=== PATIENT | female | born 1935 | race Caucasian/White ===

== ENCOUNTER 2020-06-25 16:11 | Emergency (ER) | payer MEDICARE, OTHER ==
[~2020-06-25] VITALS: Ht 160 cm; Wt 102.7 kg
[~2020-06-25 16:11] MED LIST: ASCO1TAB13 PO; ATOR20TA PO; CALC600T15 PO; CELE-193 PO; CYAN100019 PO; DULO-31 PO; ERGO500014 PO; ESCI20TA PO; GLIM4TAB7 PO; HYDR-4353 PO; LEVO125T PO; LINA5TAB4 PO; MULT-1141 PO; PRED20TA PO; PREG300C PO; PREG50CA PO; RISE150T PO; ROPI2TAB4 PO; TRAZ-251 PO; UBID1CAP PO
[2020-06-25] MEDS ORDERED: morphine 4 MG/ML inj SYRINge IV PRN (17:05)
[2020-06-25] MEDS ORDERED: ondansetron/PF 4mg/2ml inj IV ONE (17:05)
[2020-06-25] MEDS ORDERED: normal saline 1000ML IV soln IVB ONE (17:05)
--- NOTE | 2020-06-25 17:13 | NUR ---
pt to CT, dressing to left upper chest is dry and intact, had pacemaker placed yesterday, pt said she had a problem with the meds given and was instructed "to drink alot of water and go to the restroom", has been compliant
--- NOTE | 2020-06-25 17:56 | NUR ---
pt up to bedside commode with min assist, urine sample sent to lab
[2020-06-25 18:08] LABS: BASOPHILS % (AUTO) 0.2 % (0-1); EOSINOPHILS % (AUTO) 0.2 % (0-6); HEMATOCRIT 47.6 % (35.0-45.0); HEMOGLOBIN 15.7 g/dl (12.0-16.0); LYMPHOCYTES # (AUTO) 1.9 X10'3 (1.1-4.8); LYMPHOCYTES % (AUTO) 19.2 % (21-51); MEAN CORPUSCULAR HEMOGLOBIN 29.7 PG (27.0-31.0); MEAN CORPUSCULAR VOLUME 89.9 FL (78-98); MEAN PLATELET VOLUME 9.6 FL (7.4-10.4); MONOCYTES # (AUTO) 0.7 X10'3 (0-0.9); MONOCYTES % (AUTO) 7.1 % (2-12); NEUTROPHILS # (AUTO) 7.4 X10'3 (1.8-7.7); NEUTROPHILS % (AUTO) 73.3 % (42-75); PLATELET COUNT 151 X10'3 (140-440); RED CELL DISTRIBUTION WIDTH 14.9 % (11.5-14.5); WHITE BLOOD COUNT 10.1 X10'3 (4.5-11.0)
[2020-06-25 18:09] LABS: CLARITY,URINE CLEAR (Clear); COLOR,URINE STRAW (Yellow); GLUCOSE, URINE NEGATIVE (Neg); KETONES,URINE NEGATIVE (Neg); LEUKOCYTE ESTERASE ,URINE TRACE (Neg); NITRITES, URINE NEGATIVE (Neg); OCCULT BLOOD,URINE TRACE-INTACT (Neg); PH,URINE 7.5 (4.8-8.0); PROTEIN,URINE NEGATIVE (Neg); UA COLLECTION TYPE CLN CATCH MIDSTREAM; UROBILINOGEN,URINE 0.2 E.U/dL (0.2-1.0)
[2020-06-25 18:21] LABS: ALANINE AMINOTRANSFERASE 33 U/L (12-78); ALBUMIN 3.9 G/DL (3.4-5.0); ALKALINE PHOSPHATASE 71 IU/L (46-116); ANION GAP 11 (8-16); ASPARTATE AMINO TRANSFERASE 27 U/L (10-37); BLOOD UREA NITROGEN 9 MG/DL (7-18); BUN/CREATININE RATIO 11.3 (6.6-38.0); CALCIUM 9.8 MG/DL (8.5-10.1); CHLORIDE 100 MMOL/L (99-107); GLUCOSE 148 MG/DL (70-104); LIPASE 112 U/L (73-393); POTASSIUM 3.4 MMOL/L (3.5-5.1); SODIUM 134 MMOL/L (135-145); TOTAL CARBON DIOXIDE 23.3 MMOL/L (24-32); eGFR 69 ML/MIN
[2020-06-25 18:41] LABS: BACTERIA,URINE NONE SEEN /HPF (Neg); RBC,URINE NONE SEEN /HPF (0-2); SQUAMOUS EPITHELIAL CELL,UR FEW /LPF (FEW); WBC,URINE NONE SEEN /HPF (0-4)
[2020-06-25 18:47] VITALS: BP 144/99
--- NOTE | 2020-06-25 18:55 | NUR ---
PT HAS RIDE HOME WITH DAUGHTER, SHE WILL BE HERE IN 15-20 MINUTES
[2020-06-25] MEDS ORDERED: ONDA4TAB6 PO (19:16)
== END 2020-06-25 19:34 | disposition home or self-care (01) ==
LOC: ER 16:12
DX: R10.819 Abdominal tenderness, unspecified site (principal); R11.10 Vomiting, unspecified; Z95.0 Presence of cardiac pacemaker; Z90.49 Acquired absence of other specified parts of digestive tract; Z90.710 Acquired absence of both cervix and uterus; Z79.899 Other long term (current) drug therapy
CPT/HCPCS: 36415; 74176; 80053; 81001; 83690; 85025; 87088; 96361; 96374; 99284; J2405; J7030

== ENCOUNTER 2025-06-17 12:23 | Inpatient (IN) | payer MEDICARE, OTHER ==
[~2025-06-17] VITALS: Ht 157.5 cm; Wt 87.8 kg
[~2025-06-17 12:23] MED LIST changes: -CALC600T15 PO; +CALC600T35 PO; +ONDA4TAB6 PO
--- NOTE | 2025-06-17 12:47 | ELECTROCARDIOGRAPH REPORT ---
[facility] Test Date: 2025-06-17 Test Time: 12:44:10 Pat Name: HA MONROY Department: EMERGENCY ROOM [id number] Room: ED 10 Gender: F Patient Access Representative: : 1935 Requested By: KAVYA PACHECO Order Number: [id number] Reading MD: Dr. Mick Christina Measurements Intervals [place] Rate: 79 P: 12 IA: 170 QRS: 101 QRSD: 104 T: -31 QT: 357 QTc: 410 Interpretive Statements Sinus rhythm Probable RVH w/ secondary repol abnormality Baseline wander in lead(s) V1 Electronically Signed On 06-17-2025 18:20:[address] Mick Christina Please click the below link to view image of tracing.
[2025-06-17 12:49] LABS: MEAN PLATELET VOLUME 9.0 FL (7.4-10.4); RED CELL DISTRIBUTION WIDTH 13.8 % (11.5-14.5)
--- NOTE | 2025-06-17 13:03 | RADIOLOGY REPORT ---
CHEST RADIOGRAPH Indication: CP Technique: Single frontal view of the chest was obtained COMPARISON: None FINDINGS: Lines and Tubes: Left chest wall pacemaker Lungs: Multifocal airspace disease Pleura: No effusion. No pneumothorax. Cardiomediastinal contours: Unremarkable Bones: Unremarkable IMPRESSION: Multifocal airspace disease
[2025-06-17 13:05] LABS: CREATININE 1.16 MG/DL (0.40-0.90); PRO BRAIN NATRIURETIC PEPTIDE 2668 PG/ML (0-450); TOTAL CARBON DIOXIDE 29.4 MMOL/L (24-32); eCRCL 27 ML/MIN; eGFR 44 ML/MIN
[2025-06-17] MEDS: ondansetron/PF 4mg/2ml inj IV ONE (13:10)
[2025-06-17] MEDS: morphine 4 MG/ML inj SYRINge IV ONE (13:10)
--- NOTE | 2025-06-17 13:16 | Physician Documentation ---
History of Present Illness ~ Chief Complaint: Chest Pain Stated Complaint: CHEST WALL PAIN Time Seen by MD: 12:55 Primary Medical Doctor: Trey OLIVER Mode of Arrival: EMS HPI 89-year-old female presents to the ED with a complaint of intermittent very sharp left-sided chest pain.. Patient had a pacemaker placed proximally 3-4 years ago she was seen at [facility] two days ago for this chest pain and that has established via CT ANGIO that the implanted cardiac pacer in the left chest wall, O2 evidence of a right atrial lead that does not follow up with the expected J shaped course and most likely likely dislodged. Patient is a Dr. Vicky Glass patient and has a history of CHF Day of Onset: Jun 17, 2025 Medication Reconciliation Allergies: Coded Allergies: No Known Allergies (Unverified , 06/17/25) Scheduled Ascorbate Calcium/Bioflav (Korin-C 500 Mg Tablet), 1 TAB PO DAILY, (Reported) Atorvastatin Calcium* (Lipitor*), 1 TABLET PO HS, (Reported) Calcium Carbonate (Calcium), 4 TAB PO DAILY, (Reported) Celecoxib* (Celebrex*), 100 MG PO DAILY, (Reported) Cyanocobalamin (Vitamin B-12) (Vitamin B-12), 1 TABLET PO DAILY, (Reported) Duloxetine Hcl* (Cymbalta*), 60 MG PO BID, (Reported) Ergocalciferol* (Vitamin D*), 1 CAP PO Q7D, (Reported) Escitalopram Oxalate (Lexapro), 1 TABLET PO DAILY, (Reported) Glimepiride* (Amaryl*), 8 MG PO DAILY, (Reported) Levothyroxine Sodium (Synthroid), 1 TABLET PO QAM, (Reported) Linagliptin (Tradjenta), 1 TABLET PO DAILY, (Reported) Mu-Vits-Min Th/Lycopene/Lutein (Centrum Silver Tablet), 1 EACH PO DAILY, (Reported) Ondansetron Hcl (Zofran), 1 TAB PO Q6H Prednisone* (Prednisone*), 1 TABLET PO DAILY, (Reported) Pregabalin (Lyrica), 1 CAP PO HS, (Reported) Pregabalin (Lyrica), 1 CAP PO QAM, (Reported) Risedronate Sodium* (Actonel*), 1 TABLET PO Q30D, (Reported) Ropinirole Hcl (Requip), 2 MG PO DAILY, (Reported) Trazodone HCl (Trazodone HCl), 1 TABLET PO HS, (Reported) Ubidecarenone/[place]-3/Vit E (Co Q-10-Vit E-Fish Oil Sfgl), 1 TAB PO DAILY, (Reported) Scheduled PRN Hydrocodone Bit/Acetaminophen ([place] 10-325 Tablet), 1 TAB PO Q6H PRN for pain, (Reported) Past Medical History Past Medical History: No Pertinent History Past Surgical History: appendectomy, hysterectomy Patient History: (COPD) Chronic obstructive lung disease FATHER, , Age: 79, Cause: CHF exacerbation FH: HTN (hypertension) MOTHER, , Age: 92, Cause: Ovarian cancer Lives In: Home Review of Systems All Other Systems at this time: Reviewed and Negative ROS As stated above in the HPI, otherwise all systems are reviewed and negative. Physical Exam Vital Signs: Temperature: 99.4, Source: Oral, Heart Rate: 79, Respiratory Rate: 16, BP: 153/76, Pulse Oximetry: 95, Weight: 77.730 Oxygen Flow Rate: 3.0 Physical Exam General: Alert, no apparent distress. Respiratory: Lungs clear, no respiratory distress. Chest: No accessory muscle use. Cardiovascular: Regular rate and rhythm, no murmurs. Psychiatric: Normal mood and affect. Skin: Normal color, warm and dry. No edema, no ecchymosis. Progress Results/Orders Results/Orders Orders - HUI MICHAUD INSPECTOR QUALITY ASSURANCE * Call To Have Pacer Interroga (06/17/25 13:34) Er Interrogation Device Eval S (06/17/25 ) Page Hospitalist (06/17/25 ) Page Hospitalist (06/17/25 ) Completed Orders - HUI MICHAUD INSPECTOR QUALITY ASSURANCE Morphine 4mg/Ml Inj. (Morphine Inj.) (06/17/25 13:10) Ondansetron Inj. (Zofran 4mg/2ml Vial) (06/17/25 13:10) Morphine 4mg/Ml Inj. (Morphine Inj.) (06/17/25 13:55) Ondansetron Inj. (Zofran 4mg/2ml Vial) (06/17/25 13:55) Medications Received in ER Medications (Trade) Dose Ordered Sig/Maryam Route PRN Reason Start Time Stop Time Status Last Admin Dose Admin (morphine inj.) 4 mg ONCE ONCE IM 06/17/25 13:55 06/17/25 13:56 DC 06/17/25 13:59 4 MG (Zofran 4mg/2ml vial) 4 mg ONCE ONCE IM 06/17/25 13:55 06/17/25 14:00 DC 06/17/25 13:59 4 MG Vital Signs 06/17/25 06/17/25 06/17/25 06/17/25 12:27 12:59 13:59 14:45 Temp 99.4 99.4 Pulse 79 86 Resp 18 16 16 13 B/P (MAP) 153/76 161/82 (108) Pulse Ox 95 95 O2 Flow Rate 3.0 3.0 06/17/25 15:39 Resp 16 Laboratory Tests Test 06/17/25 12:34 06/17/25 14:29 White Blood Count 6.7 Red Blood Count 4.53 Hemoglobin 14.0 Hematocrit 42.5 Mean Corpuscular Volume 93.9 Mean Corpuscular Hemoglobin 30.8 Mean Corpuscular Hemoglobin Concent 32.8 L Red Cell Distribution Width 13.8 Platelet Count 180 Mean Platelet Volume 9.0 Neutrophils (%) (Auto) 68.9 Lymphocytes (%) (Auto) 22.4 Monocytes (%) (Auto) 6.1 Eosinophils (%) (Auto) 1.9 Basophils (%) (Auto) 0.7 Neutrophils # (Auto) 4.6 Lymphocytes # (Auto) 1.5 Monocytes # (Auto) 0.4 Eosinophils # (Auto) 0.1 Basophils # (Auto) 0.0 CBC Comment Sodium Level 138 Potassium Level 4.2 Chloride Level 100 Carbon Dioxide Level 29.4 Anion Gap 9 Blood Urea Nitrogen 14 Creatinine 1.16 H Estimated GFR/1.73 m2 44 BUN/Creatinine Ratio 12.1 Glucose Level 117 H Calcium Level 9.7 Troponin I High Sensitivity 13 12 Pro-B-Type Natriuretic Peptide 2668 H Albumin 3.5 Thyroid Stimulating Hormone (TSH) 3.14 Chemistry Comments Troponin I High Sens Percent Delta 7 Troponin I Hi Sens Absolute Change -1 Medical Decision Making Findings Dr. Vicky Glass was notified of the patient's arrival. At this time, we are going to interrogate the pacemaker this patient to confirm dislodged a lead. VTE angiogram that was performed two days ago at [facility] did not report any findings that would be causative of the current patient complaint which is intermittent sharp left-sided chest pain. This point I am obligated to offer hospital admission for intractable pain Cardiology will eval in the outpatient setting, I discussed this with the family reassuring them Patient is hemodynamically stable laboratory values do not indicate any signs infarct or any other cardiac events does have a positive proBNP which is expected. EKG is reassuring at normal sinus rhythm Pacemaker interrogated. The [employer] pacemaker Tech indicated there were no signs of malfunction in the pacemaker. Differential Dx:Considerations: Include: angina, aortic dissection, chest wall pain, cholelithiasis, CHF, costochondritis, esophageal reflux/spasm, gastritis, herpes zoster, myocardial infarction, pericarditis, pleuritis, pancreatitis, pneumonia, pneumothorax, pulmonary embolus, other Departure Disposition: 01 HOME / SELF CARE / HOMELESS Impression: Primary Impression: Chest pain Condition: Fair Referrals: NO PRIMARY CARE PROVIDER (PCP) Signature Scribe Signature: h Attestation: Scribed for Hui Michaud Vacuum Metalizing Supervisor by Hui Palacio NP . 06/17/25 13:38 HUI MICHAUD NP Jun 17, 2025 13:16
[2025-06-17] MEDS: morphine 4 MG/ML inj SYRINge IM ONE (13:59)
[2025-06-17] MEDS: ondansetron/PF 4mg/2ml inj IM ONE (13:59)
[2025-06-17] MEDS ORDERED: mag hydrox/Alum hydrox/simeth 30ml oral suspension PO PRN (16:45)
[2025-06-17] MEDS ORDERED: HYDROcodone/acetaminophen 5mg/325mg tablet PO PRN (16:45)
[2025-06-17] MEDS ORDERED: potassium Cl 20 mEq SR tablet PO PRN ×2 (16:45)
[2025-06-17] MEDS: PERFLUTREN PROTEIN-A MICROSPHR (Optison) 0.22 MG/ML 3ML VIAL IV ONE (16:45)
[2025-06-17] MEDS ORDERED: potassium Cl 40MEQ/1/2NS 520ml 520 ML IV PRN (16:45)
[2025-06-17] MEDS ORDERED: glucagon, human recombinant 1mg kit SUBCUT PRN (16:45)
[2025-06-17] MEDS ORDERED: HYDROcodone/acetaminophen 10/325mg tab PO PRN (16:45)
[2025-06-17] MEDS ORDERED: magnesium hydroxide 30ml (MOM) UD suspension PO PRN (16:45)
[2025-06-17] MEDS ORDERED: magnesium sulf-water 4G/100mL 100 ML IV PRN (16:45)
[2025-06-17] MEDS ORDERED: guaiFENesin 200 MG/10 ML oral syrup UD cup PO PRN (16:45)
[2025-06-17] MEDS ORDERED: DEXTROSE 15 GM of carb/4 tabs (each vial/BOTTLE has 4 tablets) PO PRN ×2 (16:45)
[2025-06-17] MEDS ORDERED: magnesium Cl slow-release 64mg tablet PO PRN (16:45)
[2025-06-17] MEDS ORDERED: magnesium sulf-water 2g/50mL 50 ML IV PRN (16:45)
[2025-06-17] MEDS ORDERED: dextrose 50%-water 50ml dispensing syringe IV PRN ×2 (16:45)
[2025-06-17] MEDS: INSULIN LISPRO 100 UNIT/ML INSULN.PEN MULTI-DOSE SQ SCH (17:00)
[2025-06-17] MEDS: CefTRIAXone/D5W-Rocephin 1gm 50 ML IV ONE (17:30)
[2025-06-17] MEDS: furosemide 10 MG/1 ML 10ml inj IV ONE (17:31)
--- NOTE | 2025-06-17 17:57 | HISTORY AND PHYSICAL-Residence ---
History & Physical Providers to CC Resident Creating Document: MICHELLE WILBURN, RES CC: SUSSY PANIAGUA MD ~ History of Present Illness Primary Medical Doctor: Trey OLIVER Reason for Admit\Complaint: Intractable neuropathic pain History of Present Illness A 89-year-old female patient with past history of hypothyroidism, diabetes mellitus, congestive heart failure, pacemaker in place presented to the ED with symptoms of severe pain since the last five [id number] chest pain, rated the pain 8/10 radiating to her back, constantly present -no aggravating or relieving factors. Patient denies any associated palpitations, fever, orthopnea or PND. Patient has cough associated with whitish sputum, no hemoptysis. Patient had a pacemaker placed in 2019. She was seen at [facility] two days ago for this chest pain, CT angio done at [facility] showed the implanted cardiac pacer in the left chest wall, evidence of a right atrial lead that does not follow up with the expected J shaped course and most likely dislodged. Patient has history of chronic neuropathic pain for the last few years. Patient lives with her family in her house and ambulates with a walker. Patient's primary care doctor is [facility] Patient's emulsion coater is Dr. Glass Patient's religious educator is Eve alvarez. ED course: Patient heart rate 79 beats/min, blood pressure 153/76mmhg, respiratory rate 18 breaths/minute Patient was given two dose of morphine 4 mg IV Allergies: Coded Allergies: No Known Allergies (Unverified , 06/17/25) Home Medications Home Medications Active Zofran (Ondansetron Hcl) 4 Mg Tablet 1 Tab PO Q6H Reported Prednisone* (Prednisone) 20 Mg Tablet 1 Tablet PO DAILY [place] 10-325 Tablet (Acetaminophen/Hydrocodone Bitart) 1 Each Tablet 1 Tab PO Q6H PRN Lexapro (Escitalopram Oxalate) 20 Mg Tablet 1 Tablet PO DAILY Celebrex* (Celecoxib) 100 Mg Capsule 100 Mg PO DAILY Actonel* (Risedronate) 150 Mg Tablet 1 Tablet PO Q30D Amaryl* (Glimepiride) 4 Mg Tablet 8 Mg PO DAILY Calcium (Calcium Carbonate) 600 Mg Tablet 4 Tab PO DAILY Tradjenta (Linagliptin) 5 Mg Tablet 1 Tablet PO DAILY Trazodone HCl 50 Mg Tablet 1 Tablet PO HS Synthroid (Levothyroxine Sodium) 125 Mcg Tablet 1 Tablet PO QAM Requip (Ropinirole Hcl) 2 Mg Tablet 2 Mg PO DAILY Lipitor* (Atorvastatin Calcium) 20 Mg Tablet 1 Tablet PO HS Korin-C 500 Mg Tablet (Ascorbate Calcium/Bioflav) 1 Each Tablet 1 Tab PO DAILY Centrum Silver Tablet (Mu-Vits-Min Th/Lycopene/Lutein) 1 Each Tablet 1 Each PO DAILY Vitamin D* (Ergocalciferol) 50,000 Unit Capsule 1 Cap PO Q7D Vitamin B-12 (Cyanocobalamin (Vitamin B-12)) 1,000 Mcg Tablet 1 Tablet PO DAILY Co Q-10-Vit E-Fish Oil Sfgl (Ubidecarenone/[place]-3/Vit E) 1 Each Capsule 1 Tab PO DAILY Lyrica (Pregabalin) 50 Mg Capsule 1 Cap PO QAM Lyrica (Pregabalin) 300 Mg Capsule 1 Cap PO HS Cymbalta* (Duloxetine HCl) 30 Mg Capsule.dr 60 Mg PO BID Past Medical History Past Medical History Diabetes mellitus Hypothyroidism Congestive heart failure Chronic neuropathic pain Past Surgical History Surgical History Comment Bilateral knee replacements in 2017 and 2019 Left hip replacement Thumb toe surgery Family History Family History: (COPD) Chronic obstructive lung disease FATHER, , Age: 79, Cause: CHF exacerbation FH: HTN (hypertension) MOTHER, , Age: 92, Cause: Ovarian cancer Past Social History Social History Comment Patient used to smoke one pack of cigarettes/2weeks- 50 years back Patient denies any alcohol or drug use Lives In: Home ROS All Other Systems: Reviewed and Negative ROS Constitutional: No fever, dizziness, weakness, HEENT: Blurry vision. No sore throat, epistaxis, tinnitus Cardiovascular: No chest pain/discomfort,no palpitations, no syncope, 2+ pitting pedal edema Respiratory: No cough,hemoptysis, severe shortness for breath present, increased work of breathing Gastrointestinal: No abdominal pain, nausea, vomiting. No diarrhea, melena. Genitourinary: No frquency, urgency, incontinence, nocturia. No dysuria, hematuria Musculoskeletal: Excruciating pain especially the left sided chest, left back ,left leg Endocrine: No fatigue, polydipsia, polyuria. No heat or cold intolerance Neurologic: No headache, vertigo. No weakness, numbness or tingling of extremities,pins and needles sensation + Psychiatric: No hallucinations/delusions, no anhedonia, no suicidal ideation Hematologic: Bruises present, chronic venous stasis noted bilaterally Exam Vitals: Vital Signs Date Time Temp Pulse Resp B/P (MAP) Pulse Ox O2 Delivery O2 Flow Rate FiO2 06/17/25 15:55 99.4 84 25 157/78 (104) 97 3.0 General: General: Elderly female, AAO x4, Head: Normocephalic with an atraumatic Eyes: Pupils- 3mm, reacting to light, conjunctiva- anicteric, normal vision left eye, blurred vision Nose and throat: No polyps, septum- normal, no mucosal ulcers, Neck: Supple, no lymphadenopathy, no carotid bruit, JVP noted Respiratory: decreased breath sounds heard bilateral, no wheezing heard, increased work of breathing Cardiac: S1-S2 heard, regular rhythm Abdomen: no tenderness, no organomegaly, bowel sounds-appreciable Extremities: no clubbing,2+ pedal edema, peripheral pulses- 2+, Skin: warm and dry, bilateral lower extremity chronic venous stasis Neuro: Gross cranial nerve exam- normal, patient complains of pins and needles sensation Diagnostic Data Last Recorded Lab Results: 06/17/25 1234 06/17/25 1234 Advance Care Planning Advanced Care plannin - 30 Minutes (Discussed advanced care planning with patient her daughter was present as well, patient has a DNR form, but she wants it to be changed to full code. I explained to the patient and her daughter extensively about the code status with respect to her age, patient is clear she wants to be full code.) Additional Plan Assessment:A 89-year-old female patient with past history of hypothyroidism, diabetes mellitus, congestive heart failure, pacemaker in place presented to the ED with symptoms of severe pain since the last five [id number]-ssrgu chest pain. Pneumonia(community-acquired pneumonia) Acute hypoxemic respiratory failure CURB-65: 1 points 2.7% 30-day mortality Procal <0.05, WBC 6.7 Patient's chest x-ray: Bilateral infiltrates Patient has symptoms of cough with sputum, patient is on 2 L oxygen saturating at 94% Plan: Ordered COVID test Initiated IV Rocephin and azithromycin Initiated guanfenine syrup and albuterol neb prn Acute on chronic heart failure with unknown ejection fraction h/o congestive heart failure, Pacemaker in place(2019) B/l pedal edema present, ProBNP: 2668 Plan: -Ordered echo -initiated furosemide 40 mg IV once, 20 mg b.i.d. from tomorrow We will continue patient's home meds, once med rec is done Left-sided chest pain, ECG-sinus rhythm,heart rate of 70beats/min, no ST segment elevations or depressions, no T-wave inversion Patient complained of chest pain radiating to her back, serial troponins were negative-ruled out IA Patient's CT at [facility] showed possible dislodgement of a guidewire of a pacemaker, Dr. Glass was informed and will evaluate. Chronic intractable neuropathic pain, Patient has had chronic neuropathic pain,possibly due to uncontrolled diabetes Patient's HbA1c is 8.1, Started the patient on moderate hyperglycemia hypoglycemic protocol Ordered morphine 1 mg q.4h PRN, 2mg q.4h., [place] p.r.n. We will initiate patient's pain meds once med rec is done Hypothyroidism Patient's TSH is 3.14, We will initiate her home levothyroxine dosage once med rec is done Diabetes mellitus type 2 His A1c is 8.1, Plan: Initiated hyperglycemia-hypoglycemia medium dose protocol Code Status: Full code DVT Prophylaxis: Heparin Lines/Tubes: PIV Nutrition: Heart healthy diet once speech therapy clears PT:yes Prognosis: Guarded Disposition: Continue to monitor the patient in ortho with telemetry Michelle Wilburn MD Internal medicine resident,PGY-1 Date of Service: Jun 17, 2025 Billing Provider: SUSSY PANIAGUA MD, JAHNAVI, RES Jun 17, 2025 17:57
[2025-06-17 18:00] VITALS: PULSE 85; RESP 16; O2SAT 95
[2025-06-17] MEDS ORDERED: HYDR-3964 PO (18:17)
[2025-06-17] MEDS ORDERED: LEVO137T2 PO (18:17)
[2025-06-17] MEDS ORDERED: MAGNESIUM PO (18:17)
[2025-06-17] MEDS ORDERED: LANTUS SUBCUT (18:17)
[2025-06-17] MEDS ORDERED: POTASSIUM PO (18:17)
[2025-06-17] MEDS ORDERED: AREDS2 PO (18:17)
[2025-06-17] MEDS ORDERED: EMPA10TA PO (18:17)
[2025-06-17] MEDS ORDERED: FURO-150 PO ×2 (18:17)
[2025-06-17] MEDS ORDERED: REQUIP PO (18:17)
[2025-06-17] MEDS: azithromycin/NS 500mg/250ml 250 ML IV SCH (18:37)
--- NOTE | 2025-06-17 19:15 | CARDIOLOGY REPORT ---
APPROVED REPORT EXAM: Limited 2D, Doppler, and color-flow Echocardiogram. Patient Location: ED 10 Heart Rate: 80's bpm Rhythm: PACED Indications CONGESTIVE HEART FAILURE CHEST PAIN PACEMAKER AROUND 2020 PER PATIENT Money Manager: Danny Glass MD Previous echo: NONE AVAILABLE (AFTER HOURS) 2D Dimensions LVDd 3.2 cm IVC 21.06 mm M-Mode Dimensions Aortic Root 2.76 (2.2-3.7cm) Aortic Valve AoV Peak Nitin. 152.5 cm/s AoV VTI 27.5 cm AO Peak GR. 9.3 mmHg AO Mean GR. 5 mmHg LVOT VTI 23.49 cm LVOT Peak Nitin. 112.8 cm/s Tricuspid Valve TR P. Velocity 442 cm/s RAP ESTIMATE 10 mmHg TR Peak Gr. 78 mmHg RVSP 88 mmHg LEFT VENTRICLE Grossly normal LV size and wall thickness. Overall systolic function is normal. TDS LVEF is 60-65%. RIGHT VENTRICLE RV appears at least moderately dilated with normal function. Elevated right heart pressures with and RVSP of 88 mmHg. Pacemaker wire in right heart.TDS ATRIA The left atrium size appears normal. TDS AORTIC VALVE Probable trileaflet AV appears mildly sclerotic without stenosis. No insufficiency. TDS MITRAL VALVE Mild MV annular calcification without stenosis. Trace regurgitation. TDS TRICUSPID VALVE TV appears structurally normal with moderate regurgitation. TDS PULMONIC VALVE Pulmonic valve is not well visualized. TDS GREAT VESSELS The aortic root is normal in size. IVC is dilated and collapses greater than 50% with inspiration. PERICARDIUM Normal pericardium. No effusion. Other Information Study Quality: Technically Difficult due to poor imaging windows and pt uncooperative Conclusion Technically diffisult study. Grossly normal LV size and wall thickness. Overall systolic function is normal. LVEF is 60-65%. RV appears at least moderately dilated with normal function. Elevated right heart pressures with and RVSP of 88 mmHg. Pacemaker wire in right heart. The left atrium size appears normal. Probable trileaflet AV appears mildly sclerotic without stenosis. No insufficiency. Mild MV annular calcification without stenosis. Trace regurgitation. TV appears structurally normal with moderate regurgitation. Normal pericardium. No effusion.
[2025-06-17] MEDS: K and/or MAG REPLACEMENT MC SCH (20:00)
[2025-06-17] MEDS: docusate sod 100mg capsule PO SCH (20:00)
[2025-06-17] MEDS: heparin, porcine 5000 units/ml vial SQ SCH (20:49)
[2025-06-17 21:50] VITALS: BP 125/67; PULSE 84; RESP 18; TEMP 99.8; O2SAT 93
[2025-06-17 21:53] LABS: UA COLLECTION TYPE URINAL
[2025-06-17 21:54] LABS: LEUKOCYTE ESTERASE ,URINE SMALL (Neg); NITRITES, URINE NEGATIVE (Neg); OCCULT BLOOD,URINE TRACE-INTACT (Neg)
[2025-06-17 22:00] VITALS: RESP 18; O2SAT 95
[2025-06-17 22:00] LABS: SQUAMOUS EPITHELIAL CELL,UR FEW /LPF (FEW)
[2025-06-17 22:01] LABS: MUCUS STRANDS FEW /LPF (Neg)
[2025-06-17 22:46] VITALS: PULSE 89; RESP 20; O2SAT 94
[2025-06-17 22:55] VITALS: PULSE 89; RESP 18
[2025-06-18] VITALS (9 sets, daily range): BP systolic 96–122; BP diastolic 40–65; PULSE 75–84; RESP 16–24; TEMP 97.2–98.7; O2SAT 92–98
[2025-06-18] MEDS: albuterol 2.5 MG/3 ML nebule NEB PRN (01:22)
[2025-06-18 05:00] LABS: MEAN PLATELET VOLUME 9.0 FL (7.4-10.4); RED CELL DISTRIBUTION WIDTH 13.7 % (11.5-14.5)
[2025-06-18 05:30] LABS: CREATININE 1.07 MG/DL (0.40-0.90); TOTAL CARBON DIOXIDE 28.6 MMOL/L (24-32); eCRCL 29 ML/MIN; eGFR 48 ML/MIN
[2025-06-18] MEDS: EMPAGLIFLOZIN 10 MG TABLET PO SCH (09:16)
[2025-06-18] MEDS: levoTHYROXINE 25mcg tablet PO SCH (09:16)
[2025-06-18] MEDS: levoTHYROXINE 112mcg tablet PO SCH (09:16)
[2025-06-18] MEDS: CefTRIAXone/D5W-Rocephin 1gm 50 ML IV SCH (09:17)
[2025-06-18] MEDS: furosemide 10 MG/1 ML 10ml inj IV SCH (09:31)
--- NOTE | 2025-06-18 13:02 | RADIOLOGY REPORT ---
CTA Chest with intravenous contrast INDICATION: pleuritic pain COMPARISON: None TECHNIQUE: Multidetector spiral CTA of the chest was performed of the chest with intravenous contrast . PULMONARY ANGIOGRAPHY PROTOCOL was utilized using a bolus-tracking technique centered on the main p ulmonary artery. Axial, coronal and sagittal multiplanar and MIP reformats were performed. CONTRAST: Type of contrast: Omni 350 Contrast injected: 100 ml Radiation dose : Chest: CTDI volume is 19 mGy. Dose-length product is 737 mGy*cm The dose indicators for CT are the volume computed Tomography (CT) dose Index (CTDIvol) and the dose Length product (DLP), and are measured in units of mGy and mGy-cm, respectively. These indicators are not patient dose, but values generated from the CT scanner acquisition factors. The report includes radiation exposure data for exposures received during this examination. Findings: Pulmonary artery: No pulmonary embolism. Main pulmonary artery is dilated suggesting pulmonary arterial hypertension. Lower neck: Normal thyroid. Lungs: Mild atelectasis and consolidation in the lung bases. Heart/Vascular Structures: Normal heart size. No pericardial effusion. Lymph Nodes: Subcentimeter mediastinal lymph nodes. Pleura: No pleural effusion or significant pneumothorax. Musculoskeletal: Old treated compression fractures T12 and L2. Multilevel degenerative disease. Ost eopenia. Soft tissues: Normal. Upper abdomen: Limited portions of the upper abdomen are unremarkable. IMPRESSION: 1. No pulmonary embolism. 2. Mild atelectasis and consolidation in the lung bases. Subcentimeter mediastinal lymph nodes are n onspecific. Clinical correlation and continued follow-up is recommended. HS:Y
[2025-06-18] MEDS: duloxetine 20mg capsule.DR PO SCH (13:13)
--- NOTE | 2025-06-18 13:33 | RADIOLOGY REPORT ---
HOSPITAL INDICATION: Chronic pain COMPARISON: None TECHNIQUE:3 views of the thoracic spine were obtained. FINDINGS: The thoracic vertebral alignment is normal. Kyphoplasty T11 vertebral bodies No acute fracture, vertebral compression deformity or aggressive osseous lesions. The imaged thorax and abdomen are grossly unremarkable. IMPRESSION: No acute fracture.
--- NOTE | 2025-06-18 13:35 | RADIOLOGY REPORT ---
INDICATION: Chronic pain COMPARISON: None TECHNIQUE: 3 views of the lumbar spine were obtained. FINDINGS: The lumbar vertebral alignment is normal. Multilevel degenerative changes most severe L4-L5 through L5-S1 causing moderate to severe neural for aminal and spinal canal stenosis. No acute fracture, vertebral compression deformity or aggressive osseous lesions. The paravertebral soft tissues are grossly unremarkable. IMPRESSION: No acute fracture or subluxation.
[2025-06-18] MEDS: lactose-reduced food (Ensure Enlive) - 237ml bottle PO SCH (18:00)
--- NOTE | 2025-06-18 18:37 | PROGRESS NOTE- Residence ---
Progress Note - Resident Providers to CC Resident Creating Document: JASIEL WILBURN RES CC: SUSSY PANIAGUA MD ~ Antibiotic Timeout Antibiotic Ordered?: Yes Subjective Patient was seen and examined at her bedside, patient appears uncomfortable, grunting in pain due to her chronic neuropathic pain. Objective Vital Signs Date Time Temp Pulse Resp B/P (MAP) Pulse Ox O2 Delivery O2 Flow Rate FiO2 06/18/25 18:00 97.2 80 22 122/65 (84) 93 Nasal Cannula 4.0 06/18/25 08:51 32 General: Elderly female, AAO x4, in distress Head: Normocephalic with an atraumatic Neck: Supple, no lymphadenopathy, no carotid bruit, JVP noted Respiratory: decreased breath sounds heard bilateral, no wheezing heard, increased work of breathing Cardiac: S1-S2 heard, regular rhythm Abdomen: no tenderness, no organomegaly, bowel sounds-appreciable Extremities: no clubbing,1+ pedal edema, peripheral pulses- 2+, Skin: warm and dry, bilateral lower extremity chronic venous stasis Neuro: Gross cranial nerve exam- normal, patient complains of pins and needles sensation Result Diagram: 06/18/2544106/18/25441 Plan Plan Additional Plan Assessment:A 89-year-old female patient with past history of hypothyroidism, diabetes mellitus, congestive heart failure, pacemaker in place presented to the ED with symptoms of severe pain since the last five lbhd-frqm-kufhl chest pain. Pneumonia(community-acquired pneumonia)-gram positive pneumonia Acute hypoxemic respiratory failure CURB-65: 1 points 2.7% 30-day mortality Procal <0.05, WBC 8 Patient's chest x-ray: Bilateral infiltrates Patient has symptoms of cough with sputum, patient is on 3-4 L oxygen saturating at 94% COVID test negative CTA chest: Mild atelectasis and consolidation in the lung bases. Plan -Continue IV Rocephin and azithromycin -Continue guanfenine syrup and albuterol neb prn Acute on chronic heart failure with preserved ejection fraction h/o congestive heart failure, Pacemaker in place(2019) B/l pedal edema present, ProBNP: 2668 Echo showed.Grossly normal LV size and wall thickness. Overall systolic function is normal. LVEF is 60-65%. RV appears at least moderately dilated with normal function. Elevated right heart pressures with and RVSP of 88 mmHg. Pacemaker wire in right heart. Plan: -continue furosemide 20 mg b.i.d. -continue empagliflozin 10mg Left-sided chest pain,ACS ruled out ECG-sinus rhythm,heart rate of 70beats/min, no ST segment elevations or depressions, no T-wave inversion Patient complained of chest pain radiating to her back, serial troponins were negative-ruled out [place] Patient's CT at [facility] showed possible dislodgement of a guidewire of a pacemaker, Dr. Glass was informed and will evaluate. Plan:Cardiology was consulted, they reviewed the patient, did not feel the need of any intervention right now and recommended outpatient follow Chronic intractable neuropathic pain, Patient has had chronic neuropathic pain,possibly due to uncontrolled diabetes,HbA1c 8.1 Lumbar spine [id number]-klq-[id number] no acute fractures,Multilevel degenerative changes most severe L4-L5 through L5-S1 causing moderate to severe neural foraminal and spinal canal stenosis., Thoracic spine x-ray showed no acute fracture,Kyphoplasty of T11 vertebral bodies Plan: -Initiated duloxetine 30 mg once a day -Continue 1 mg q.4h PRN, 2mg q.4h., [place] p.r.n. -will benefit from outpatient follow-up with neurosurgery Hypothyroidism Patient's TSH is 3.14, Continue levothyroxine 75 mcg Diabetes mellitus type 2 His A1c is 8.1, -continue hyperglycemia-hypoglycemia medium dose protocol Code Status: Full code DVT Prophylaxis: Heparin Lines/Tubes: PIV Nutrition: Heart healthy diet PT:yes Prognosis: Guarded Disposition: Continue to monitor the patient in ortho with telemetry Jasiel Wilburn MD Internal medicine resident,PGY-1 Date of Service: Jun 18, 2025 Billing Provider: SUSSY PANIAGUA MD, JAHNAVI, RES Jun 18, 2025 18:36 CHAN HIGGINS, RES Jun 19, 2025 07:58
[2025-06-19] VITALS (13 sets, daily range): BP systolic 101–127; BP diastolic 43–69; PULSE 55–80; RESP 15–18; TEMP 97.4–98.4; O2SAT 91–100
[2025-06-19 05:31] LABS: MEAN PLATELET VOLUME 8.7 FL (7.4-10.4); RED CELL DISTRIBUTION WIDTH 13.9 % (11.5-14.5)
[2025-06-19 05:52] LABS: CREATININE 0.93 MG/DL (0.40-0.90); TOTAL CARBON DIOXIDE 34.2 MMOL/L (24-32); eCRCL 33 ML/MIN; eGFR 57 ML/MIN
[2025-06-19] MEDS: ondansetron/PF 4mg/2ml inj IV PRN (08:48)
[2025-06-19] MEDS ORDERED: CARV3.12 PO (13:42)
[2025-06-19] MEDS ORDERED: LOSA-415 PO (13:42)
[2025-06-19] MEDS ORDERED: SENN-398 PO (13:42)
--- NOTE | 2025-06-19 15:42 | PROGRESS NOTE- Residence ---
Progress Note - Resident Providers to CC Resident Creating Document: CHAN HIGGINS RES CC: SUSSY PANIAGUA MD ~ Central Line/PICC still needed: N\A Antibiotic Timeout Antibiotic Ordered?: Yes Subjective Patient is seen this morning at the bedside. Beating appears better than yesterday. She is still complaining of pain over her back and had tried lidocaine patches in the past which helped her with the pain. Discussed regarding the code status with the patient and patient said she had signed the DNR before but she wants me to discuss again with her daughter regarding the code status. I tried reaching the daughter but call was not answered- Tash mcdaniels- [phone] Objective Vital Signs Date Time Temp Pulse Resp B/P (MAP) Pulse Ox O2 Delivery O2 Flow Rate FiO2 06/19/25 10:10 76 17 91 Nasal Cannula* 3 32 06/19/25 10:00 97.8 103/48 (66) Result Diagram: 06/19/255 06/19/255 General: Elderly female, AAO x4, not in apparent distress Head: Normocephalic with an atraumatic Eyes: Pupils- 3mm, reacting to light, conjunctiva- anicteric Nose and throat: No polyps, septum- normal, no mucosal ulcers Neck: Supple, no lymphadenopathy, no carotid bruit Respiratory: No use of accessory muscles of respiration, Bilateral normal breath sounds heard Cardiac: S1-S2 heard, rythm regular, no gallop/murmur Abdomen: non distended, no tenderness, no organomegaly, bowel sounds- heard Extremities: no clubbing, no pedal edema, no deformities, peripheral pulses- 2+ Skin: warm and dry, no rash, no purpura Neuro: No focal deficit, gross cranial nerve exam- normal Assessment Assessment 89-year-old female patient with past history of hypothyroidism, diabetes mellitus, congestive heart failure, pacemaker in place presented to the ED with symptoms of severe left-sided chest pain. pain since the last five days Plan Plan Pneumonia(community-acquired pneumonia) Acute hypoxemic respiratory failure CURB-65: 1 points 2.7% 30-day mortality Procal <0.05, WBC 8 chest x-ray: Bilateral infiltrates Patient has symptoms of cough with sputum, patient is on 3-4 L oxygen saturating at 94% COVID test negative CTA chest: Mild atelectasis and consolidation in the lung bases. Plan -Continue IV Rocephin and azithromycin -Continue guanfenine syrup and albuterol neb prn Acute on chronic heart failure with preserved ejection fraction h/o congestive heart failure, Pacemaker in place(2019) B/l pedal edema present, ProBNP: 2668 Echo showed.Grossly normal LV size and wall thickness. Overall systolic function is normal. LVEF is 60-65%. RV appears at least moderately dilated with normal function. Elevated right heart pressures with and RVSP of 88 mmHg. Pacemaker wire in right heart. Plan: -continue furosemide 20 mg b.i.d. -continue empagliflozin 10mg once daily Left-sided chest pain,ACS ruled out ECG-sinus rhythm,heart rate of 70beats/min, no ST segment elevations or depressions, no T-wave inversion Patient complained of chest pain radiating to her back, serial troponins were negative-ruled out [place] Patient's CT at [facility] showed possible dislodgement of a guidewire of a pacemaker, Dr. 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 vertebral kyphoplasty Patient has had chronic neuropathic pain,possibly due to uncontrolled diabetes,HbA1c 8.1 Lumbar spine w-lln-cwipso no acute fractures,Multilevel degenerative changes most severe L4-L5 through L5-S1 causing moderate to severe neural foraminal and spinal canal stenosis., Thoracic spine x-ray showed no acute fracture,Kyphoplasty of T11 vertebral bodies Plan: -Increase duloxetine to 60 mg po once daily -needs outpatient pain doctor appointment for local steroid injection Hypothyroidism Patient's TSH is 3.14, Continue levothyroxine 137 mcg once daily Diabetes mellitus type 2 His A1c is 8.1, -continue hyperglycemia-hypoglycemia medium dose protocol Code Status: Full code DVT Prophylaxis: Heparin Lines/Tubes: PIV Nutrition: Heart healthy diet PT:yes Prognosis: Guarded Disposition: dc to rehab tomorrow Date of Service: Jun 19, 2025 Billing Provider: SUSSY PANIAGUA MD, HARIVARSHA, RES Jun 19, 2025 15:42
[2025-06-19] MEDS: duloxetine 30mg CAPSULE.DR PO SCH (16:28)
[2025-06-20] VITALS (10 sets, daily range): BP systolic 107–140; BP diastolic 49–81; PULSE 71–96; RESP 16–18; TEMP 97.5–98.8; O2SAT 90–96
[2025-06-20 05:50] LABS: MEAN PLATELET VOLUME 9.2 FL (7.4-10.4); RED CELL DISTRIBUTION WIDTH 13.6 % (11.5-14.5)
[2025-06-20 06:14] LABS: CREATININE 0.88 MG/DL (0.40-0.90); TOTAL CARBON DIOXIDE 31.9 MMOL/L (24-32); eCRCL 35 ML/MIN; eGFR 61 ML/MIN
--- NOTE | 2025-06-20 15:38 | PROGRESS NOTE- Residence ---
Progress Note - Resident Providers to CC Resident Creating Document: JASIEL WILBURN RES CC: SUSSY PANIAGUA MD ~ Antibiotic Timeout Antibiotic Ordered?: Yes Subjective Patient was seen and examined at bedside, she appears comfortable. Didn't complain of any pain today. Once again discussed regarding the code status with the patient, she has not made her mind up yet regarding her code status. Patient's daughter and son-in-law were present and they said they would have a conversation with the patient regarding the code status. Objective Vital Signs Date Time Temp Pulse Resp B/P (MAP) Pulse Ox O2 Delivery O2 Flow Rate FiO2 06/20/25 12:23 77 16 90 Nasal Cannula* 3 32 06/20/25 10:15 98.2 120/62 (81) General: Elderly female, AAO x4, not in apparent distress Head: Normocephalic with an atraumatic Eyes: Pupils- 3mm, reacting to light, conjunctiva- anicteric Nose and throat: No polyps, septum- normal, no mucosal ulcers Neck: Supple, no lymphadenopathy, no carotid bruit Respiratory: No use of accessory muscles of respiration, Bilateral normal breath sounds heard Cardiac: S1-S2 heard, rythm regular, no gallop/murmur Abdomen: non distended, no tenderness, no organomegaly, bowel sounds- heard Extremities: no clubbing, no pedal edema, no deformities, peripheral pulses- 2+ Skin: warm and dry, no rash, no purpura Neuro: No focal deficit, gross cranial nerve exam- normal Result Diagram: 06/20/2544406/20/25444 Advance Care Planning Advanced Care plannin - 30 Minutes (Discussed with the patient and family extensively about the code status, they said they would have a conversation today and tell their decision) Assessment Assessment 89-year-old female patient with past history of hypothyroidism, diabetes mellitus, congestive heart failure, pacemaker in place presented to the ED with symptoms of severe left-sided chest pain. pain since the last five days Plan Plan Pneumonia(community-acquired pneumonia) Acute hypoxemic respiratory failure CURB-65: 1 points 2.7% 30-day mortality Procal <0.05, WBC 8 chest x-ray: Bilateral infiltrates Patient has symptoms of cough with sputum,decreased compared to admission, Pt is on 1-2L O2 saturating at 93-95% COVID test negative CTA chest: Mild atelectasis and consolidation in the lung bases. Plan -Continue IV Rocephin -DC azithromycin -Continue guanfenine syrup and albuterol neb prn Acute on chronic heart failure with preserved ejection fraction h/o congestive heart failure, Pacemaker in place(2019) B/l pedal edema present, ProBNP: 2668 Echo showed.Grossly normal LV size and wall thickness. Overall systolic function is normal. LVEF is 60-65%. RV appears at least moderately dilated with normal function. Elevated right heart pressures with and RVSP of 88 mmHg. Pacemaker wire in right heart. Plan: -changed furosemide 20 mg to once daily -continue empagliflozin 10mg once daily Left-sided chest pain,ACS ruled out ECG-sinus rhythm,heart rate of 70beats/min, no ST segment elevations or depressions, no T-wave inversion Patient complained of chest pain radiating to her back, serial troponins were negative-ruled out [place] Patient's CT at [facility] showed possible dislodgement of a guidewire of a pacemaker, Dr. 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 t11 vertebral kyphoplasty Patient has had chronic neuropathic pain,possibly due to uncontrolled diabetes,HbA1c 8.1 Lumbar spine j-kwn-kufwgo no acute fractures,Multilevel degenerative changes most severe L4-L5 through L5-S1 causing moderate to severe neural foraminal and spinal canal stenosis., Thoracic spine x-ray showed no acute fracture,Kyphoplasty of T11 vertebral bodies Plan: -continue duloxetine to 60 mg po once daily -needs outpatient pain doctor appointment for local steroid injection Hypothyroidism Patient's TSH is 3.14, Continue levothyroxine 137 mcg once daily Diabetes mellitus type 2 His A1c is 8.1, -continue hyperglycemia-hypoglycemia medium dose protocol Code Status: Full code DVT Prophylaxis: Heparin Lines/Tubes: PIV Nutrition: Heart healthy diet PT:yes Prognosis: Guarded Disposition: Discharge to rehab tomorrow Jasiel Wilburn MD Internal medicine resident,PGY-1 Date of Service: Jun 20, 2025 Billing Provider: USSSY PANIAGUA MD, JAHNAVI, RES Jun 20, 2025 15:38
[2025-06-20] MEDS: CefTRIAXone/D5W-Rocephin 1gm 50 ML IV ONE (17:07)
[2025-06-21 06:00] VITALS: BP 127/58; PULSE 75; RESP 20; TEMP 98.2; O2SAT 93
[2025-06-21 06:33] LABS: MEAN PLATELET VOLUME 9.4 FL (7.4-10.4); RED CELL DISTRIBUTION WIDTH 13.8 % (11.5-14.5)
[2025-06-21 07:07] LABS: CREATININE 0.89 MG/DL (0.40-0.90); TOTAL CARBON DIOXIDE 32.0 MMOL/L (24-32); eCRCL 35 ML/MIN; eGFR 60 ML/MIN
[2025-06-21 08:00] VITALS: BP_SYST 107; BP_SYST 110; BP_SYST 114; BP_DIAS 45; BP_DIAS 53; BP_DIAS 60; PULSE 75; PULSE 76; PULSE 79; RESP 15; O2SAT 94
[2025-06-21 08:35] VITALS: PULSE 88; RESP 18; O2SAT 93
[2025-06-21 08:42] VITALS: PULSE 82; RESP 18
[2025-06-21] MEDS: NYSTATIN CREAM - 30GM TUBE TP SCH (12:40)
--- NOTE | 2025-06-21 13:58 | DISCHARGE SUMMARY-Residence ---
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 Patient denies any associated palpitations, fever, orthopnea or PND. Patient has cough associated with whitish sputum, no hemoptysis. Patient had a pacemaker placed in 2019. She was seen at [facility] two days ago for this chest pain, CT angio done at [facility] showed the implanted cardiac pacer in the left chest wall, evidence of a right atrial lead that does not follow up with the expected J shaped course and most likely dislodged. Patient has history of chronic neuropathic pain for the last few years. Hospital course: A 89-year-old female patient with past history of congestive heart failure, pacemaker in place presented to the ED with symptoms of severe pain since the last five pfas-ilxi-mamte chest pain. Patient had a CT angio done at [facility] two days before admission here, which reported possibility of dislodgement of a right atrial lead. Patient's manager vehicle Dr. Glass was consulted and confirmed that there was no dislodgement. ECG on arrival was normal, serial troponins were negative. Patient has a history of congestive hear t failure, pacemaker was put in in 2019, this admission patient's proBNP was elevated at 2668, bilateral pedal edema was present, echo showed normal LV size and wall thickness, right ventricle moderately dilated normal function and elevated right heart pressures with RVSP of 88 mmHg and EF of 60-65%. Continued patient's home medication empagliflozin 10 mg and titrated furosemide as needed during the stay. In addition, patient's chest x-ray showed bilateral infiltrates, CT chest showed mild atelectasis and consolidation in the lung bases, she required oxygen 3 L of oxygen, treated the patient with Rocephin and azithromycin for her pneumonia possibly community-acquired. Patient also had mild cough initiated the patient on guaifenesin syrup and albuterol nebulization p.r.n. Patient has a history of chronic intractable neuropathic pain present near her lumbar,thoracic spine and hip, history of kyphoplasty of T11 vertebral body, HGB A1c elevated at 8.1-lumbar x-rays done here showed no acute fractures, multile franco degenerative changes were present L4-L5 and L5-S1 causing moderate to severe neural foraminal and spinal canal stenosis. We initiated the patient on duloxetine 60 mg and lidocaine patch. We recommended the patient to get an outpatient pain specialist. For her hypothyroidism we continued patient's home medication levothyroxine 137mcg. Patient's HbA1c was elevated to 8.1, but her blood glucose during the stay was in the 100-200 range, so we treated as per hyperglycemia hypoglycemic medium dose protocol. Significant imaging: Lumbar spine x-ray 06/18/25 Multilevel degenerative changes most severe L4-L5 through L5-S1 causing moderate to severe neural foraminal and spinal canal stenosis. Thoracic spine x-ray 06/18/2025 Kyphoplasty T11 vertebral bodies No acute fracture, vertebral compression deformity or aggressive osseous lesions. CTA chest:06/18/25 Mild atelectasis and consolidation in the lung bases. Vital Signs Date Time Temp Pulse Resp B/P (MAP) Pulse Ox O2 Delivery O2 Flow Rate FiO2 06/21/25 08:42 82 18 Nasal Cannula 3.0 06/21/25 08:35 93 32 06/21/25 08:00 110/60 (77) 114/45 (68) 107/53 (71) 06/21/25 06:00 98.2 Laboratory Tests Test 06/19/25 17:45 06/19/25 21:15 06/20/25 04:45 06/20/25 07:24 Glucometer 217 mg/dl 218 mg/dl 121 mg/dl White Blood Count 7.8 X10'3 Red Blood Count 4.25 X10'6 Hemoglobin 13.2 g/dl Hematocrit 39.4 % Mean Corpuscular Volume 92.7 FL Mean Corpuscular Hemoglobin 31.1 PG Mean Corpuscular Hemoglobin Concent 33.5 g/dL Red Cell Distribution Width 13.6 % Platelet Count 144 X10'3 Mean Platelet Volume 9.2 FL Neutrophils (%) (Auto) 66.6 % Lymphocytes (%) (Auto) 22.3 % Monocytes (%) (Auto) 7.1 % Eosinophils (%) (Auto) 3.6 % Basophils (%) (Auto) 0.4 % Neutrophils # (Auto) 5.2 X10'3 Lymphocytes # (Auto) 1.7 X10'3 Monocytes # (Auto) 0.6 X10'3 Eosinophils # (Auto) 0.3 X10'3 Basophils # (Auto) 0.0 X10'3 CBC Comment Sodium Level 134 MMOL/L Potassium Level 3.5 MMOL/L Chloride Level 97 MMOL/L Carbon Dioxide Level 31.9 MMOL/L Anion Gap 5 Blood Urea Nitrogen 18 MG/DL Creatinine 0.88 MG/DL Estimated GFR/1.73 m2 61 ML/MIN BUN/Creatinine Ratio 20.5 Glucose Level 132 MG/DL Calcium Level 8.8 MG/DL Magnesium Level 1.9 MG/DL Total Bilirubin 0.4 MG/DL Aspartate Amino Transf (AST/SGOT) 18 U/L Alanine Aminotransferase (ALT/SGPT) 19 U/L Alkaline Phosphatase 56 IU/L Total Protein 6.4 G/DL Albumin 2.8 G/DL Globulin 3.6 G/DL Albumin/Globulin Ratio 0.8 Chemistry Comments Test 06/20/25 11:54 06/20/25 17:10 06/20/25 20:50 06/21/25 04:27 Glucometer 180 mg/dl 136 mg/dl 228 mg/dl White Blood Count 8.9 X10'3 Red Blood Count 4.28 X10'6 Hemoglobin 13.2 g/dl Hematocrit 39.5 % Mean Corpuscular Volume 92.2 FL Mean Corpuscular Hemoglobin 30.9 PG Mean Corpuscular Hemoglobin Concent 33.6 g/dL Red Cell Distribution Width 13.8 % Platelet Count 156 X10'3 Mean Platelet Volume 9.4 FL Neutrophils (%) (Auto) 73.0 % Lymphocytes (%) (Auto) 16.4 % Monocytes (%) (Auto) 7.6 % Eosinophils (%) (Auto) 2.8 % Basophils (%) (Auto) 0.2 % Neutrophils # (Auto) 6.5 X10'3 Lymphocytes # (Auto) 1.5 X10'3 Monocytes # (Auto) 0.7 X10'3 Eosinophils # (Auto) 0.2 X10'3 Basophils # (Auto) 0.0 X10'3 CBC Comment Sodium Level 134 MMOL/L Potassium Level 3.5 MMOL/L Chloride Level 97 MMOL/L Carbon Dioxide Level 32.0 MMOL/L Anion Gap 5 Blood Urea Nitrogen 18 MG/DL Creatinine 0.89 MG/DL Estimated GFR/1.73 m2 60 ML/MIN BUN/Creatinine Ratio 20.2 Glucose Level 129 MG/DL Calcium Level 9.2 MG/DL Magnesium Level 2.1 MG/DL Total Bilirubin 0.4 MG/DL Aspartate Amino Transf (AST/SGOT) 14 U/L Alanine Aminotransferase (ALT/SGPT) 14 U/L Alkaline Phosphatase 56 IU/L Total Protein 6.6 G/DL Albumin 2.8 G/DL Globulin 3.8 G/DL Albumin/Globulin Ratio 0.7 Chemistry Comments Test 06/21/25 07:23 06/21/25 12:23 Glucometer 133 mg/dl 259 mg/dl Discharge advise Rehab MD to resume care Follow-up with your primary care doctor. Follow up with your manager vehicle Dr. Glass regarding your pacemaker Establish an outpatient pain doctor for your pain Continue oral antibiotics as prescribed Heart healthy diet to be continued Wound Care to be consulted for your sacral ulcer Discharge medications New medications: T duloxetine 60 mg p.o. once daily T culturell 21335 units p.o. once daily for one month T. cefdinir 300 mg p.o. b.i.d. for three days Nystatin cream Lidocaine patch Continue your regular home medications. *Problems/Diagnosis: (1) Pneumonia Status: Acute (2) Chest pain Status: Acute (3) S/P placement of cardiac pacemaker Status: Chronic (4) Congestive heart disease Status: Acute Total Time Spent on D/C: > 30 Minutes Date of Service: Jun 21, 2025 Billing Provider: SUSSY PANIAGUA MD, JAHNAVI, RES Jun 21, 2025 13:01
== END 2025-06-21 13:30 | DRG 193 ==
LOC: ER 12:23 → ED HOLD 15:45 → ORTHO 4S 21:30
PROVIDERS: ADMIT Family Medicine; ATTEND Family Medicine
PROC: 4B02XSZ Measurement of Cardiac Pacemaker, External Approach (ICD-10-PCS; principal; 2025-06-17)
PROC: B32T1ZZ Computerized Tomography (CT Scan) of Left Pulmonary Artery using Low Osmolar Contrast (ICD-10-PCS; 2025-06-18)
PROC: B3201ZZ Computerized Tomography (CT Scan) of Thoracic Aorta using Low Osmolar Contrast (ICD-10-PCS; 2025-06-18)
PROC: B32S1ZZ Computerized Tomography (CT Scan) of Right Pulmonary Artery using Low Osmolar Contrast (ICD-10-PCS; 2025-06-18)
DX: J15.9 Unspecified bacterial pneumonia (principal); I50.33 Acute on chronic diastolic (congestive) heart failure; J96.01 Acute respiratory failure with hypoxia; J98.11 Atelectasis; J44.0 Chronic obstructive pulmonary disease with (acute) lower respiratory infection; I11.0 Hypertensive heart disease with heart failure; Z20.822 Contact with and (suspected) exposure to COVID-19; E03.9 Hypothyroidism, unspecified; E11.9 Type 2 diabetes mellitus without complications; Z96.653 Presence of artificial knee joint, bilateral; F17.210 Nicotine dependence, cigarettes, uncomplicated; M47.894 Other spondylosis, thoracic region; Z79.899 Other long term (current) drug therapy; Z82.49 Family history of ischemic heart disease and other diseases of the circulatory system; Z80.41 Family history of malignant neoplasm of ovary; Z90.49 Acquired absence of other specified parts of digestive tract; Z90.710 Acquired absence of both cervix and uterus; Z95.0 Presence of cardiac pacemaker
CPT/HCPCS: 36415; 71045; 71275; 72070; 72100; 80048; 80053; 81001; 82948; 83036; 83735; 83880; 84145; 84443; 84484; 85025; 87081; 87088; 87811; 92508; 92616; 93005; 93306; 93308; 94640; 94760; 96365; 96372; 97116; 97161; 97530; 99291; A6250; G0378; J0456; J0696; J1644; J1815; J1938; J2270; J2405; J7040; Q9967

== ENCOUNTER 2025-10-09 21:15 | Inpatient (IN) | payer MEDICARE, OTHER ==
[~2025-10-09] VITALS: Ht 157.5 cm; Wt 75.0 kg
[~2025-10-09 21:15] MED LIST changes: +AREDS2 PO; -ASCO1TAB13 PO; -ATOR20TA PO; -CALC600T35 PO; +CARV3.12 PO; -CELE-193 PO; +CEPH-585 PO; -CYAN100019 PO; +CYCL-1 PO; -DULO-31 PO; +EMPA10TA PO; -ERGO500014 PO; -ESCI20TA PO; +FURO-150 PO; -GLIM4TAB7 PO; +GUAI1CAP96 PO; +HYDR-3964 PO; -HYDR-4353 PO; +LANTUS SUBCUT; -LEVO125T PO; +LEVO137T2 PO; -LINA5TAB4 PO; +LOSA-415 PO; +MAGNESIUM PO; -MULT-1141 PO; -ONDA4TAB6 PO; +POTASSIUM PO; -PRED20TA PO; -PREG300C PO; +REQUIP PO; -RISE150T PO; -ROPI2TAB4 PO; -TRAZ-251 PO; -UBID1CAP PO
--- NOTE | 2025-10-09 22:00 | Physician Documentation ---
History of Present Illness ~ Chief Complaint: Extremity Swelling Stated Complaint: WATER RETENTION Time Seen by MD: 21:56 Primary Medical Doctor: Trey OLIVER 89-year-old female history of CHF presenting with leg swelling She tells me that she was admitted not too long ago with volume overload, and did require IV Lasix. She was then discharged home without any medication changes. She was then seen here a couple of days ago and diagnosed with a urinary tract infection and discharged with antibiotics. She returns today with increased leg swelling and weight gain. She tells me she gained about 8 lb of weight in her legs are much more swollen and painful. She also reports having increased cough and shortness of breath. She is on 2 L nasal cannula oxygen at baseline. She has been taking her Lasix daily as prescribed, no recent changes. She also reports having some intermittent chest discomfort. No fevers or chills. Family reports she is generally weak and was having trouble getting around today Tetanus witin 5 years: Yes Medication Reconciliation Allergies: Coded Allergies: No Known Allergies (Unverified , 10/09/25) Scheduled Carvedilol (Coreg), 1 TAB PO Q12H, (Reported) Cephalexin*Monohydrate* (Keflex*), 1 CAP PO BID Empagliflozin (Jardiance), 1 TAB PO DAILY, (Reported) Furosemide (Lasix), 2 TAB PO QAM, (Reported) Furosemide (Lasix), 1 TAB PO DAILY, (Reported) Guaifenesin/Dextromethorphan (Robitussin Ceplc-Ummei-Cxue Dm), 1 CAP PO Q12H Levothyroxine Sodium (Levothyroxine Sodium), 1 TAB PO DAILY, (Reported) Losartan Potassium* (Cozaar*), 1 TAB PO QPM, (Reported) Pregabalin (Lyrica), 1 CAP PO QAM, (Reported) [Areds2], 1 CAP PO DAILY, (Reported) [Magnesium], 1 PO DAILY, (Reported) [Potassium], 1 PO DAILY, (Reported) [Requip], 1 PO HS, (Reported) Scheduled PRN Cyclobenzaprine* (Cyclobenzaprine*), 5 MG PO Q8H PRN for muscle spasms Hydrocodone Bit/Acetaminophen (Hydrocodon-Acetaminophen 5-325), 1 TAB PO BID PRN for pain, (Reported) Insulin Glargine,Hum.rec.anlog* (Lantus*), 0 SUBCUT HS PRN for Per Protocol, (Reported) Discontinued Medications Sennosides (Senokot), 1 TAB PO QPM, (Reported) Past Medical History Past Medical History: No Pertinent History Past Surgical History: appendectomy, hysterectomy Patient History: (COPD) Chronic obstructive lung disease FATHER, , Age: 79, Cause: CHF exacerbation FH: HTN (hypertension) MOTHER, , Age: 92, Cause: Ovarian cancer Lives In: Home Review of Systems Constitutional: Denies: fever Respiratory: Reports: shortness of breath, SOB with exertion Gastrointestinal: Denies: abdominal pain Physical Exam Vital Signs: Temperature: 98.1, Source: Oral, Heart Rate: 70, Respiratory Rate: 16, BP: 130/72, Pulse Oximetry: 98, Weight: 81.820 Oxygen Flow Rate: 2.0 Physical Exam General: This is a tired and generally ill-appearing older female, family at bedside HEENT: Atraumatic, oropharynx appears dry Heart: Regular rate and rhythm, normal-appearing peripheral perfusion Lungs: Diminished breath sounds bilateral, occasional wet sounding cough, faint crackles in the bases, normal work of breathing, normal oxygen saturation on 2 L nasal cannula Abdomen: Soft, nondistended, nontender Extremities: Warm and well-perfused. Pitting edema to bilateral lower extremities Neuro: Alert and oriented, appears to have some generalized weakness but no focal weakness Psychiatric: Flattened affect and appears very tired, but is cooperative with exam Progress Results/Orders Results/Orders Orders - EMMANUEL ALDRICH MD Chest,Single View (10/09/25 23:55) Page Hospitalist (10/09/25 23:55) Completed Orders - EMMANUEL ALDRICH MD Cbc/Diff (10/09/25 22:24) CMP (10/09/25 22:24) PBNP (10/09/25 22:24) Hs Troponin I W Calculations (10/09/25 23:55) Chest,Single View (10/09/25 23:55) Hydrocodone/Apap 5/325mg Tab ([place]don 5/32 (10/09/25 23:55) Furosemide Inj (Lasix Inj) (10/09/25 23:55) Electrocardiogram (10/10/25 00:00) Medications Received in ER Medications (Trade) Dose Ordered Sig/Maryam Route PRN Reason Start Time Stop Time Status Last Admin Dose Admin ([place]don 5/325mg tablet) 1 tab ONCE ONCE PO 10/09/25 23:55 10/09/25 23:56 DC 10/10/25 00:24 1 TAB (Lasix inj) 60 mg ONCE ONCE IV 10/09/25 23:55 10/09/25 23:56 DC 10/10/25 00:25 60 MG Vital Signs 10/09/25 10/09/25 10/09/25 10/10/25 21:28 21:38 21:38 00:24 Temp 98.1 Pulse 70 76 Resp 16 16 16 18 B/P (MAP) 130/72 127/90 (102) Pulse Ox 98 97 O2 Flow Rate 2.0 10/10/25 01:04 Pulse 70 Resp 18 B/P (MAP) 122/78 (93) Pulse Ox 98 Laboratory Tests Test 10/09/25 22:38 White Blood Count 7.9 Red Blood Count 4.28 Hemoglobin 13.3 Hematocrit 40.1 Mean Corpuscular Volume 93.6 Mean Corpuscular Hemoglobin 31.1 H Mean Corpuscular Hemoglobin Concent 33.3 Red Cell Distribution Width 14.3 Platelet Count 176 Mean Platelet Volume 8.9 Neutrophils (%) (Auto) 69.2 Lymphocytes (%) (Auto) 18.9 L Monocytes (%) (Auto) 6.8 Eosinophils (%) (Auto) 4.8 Basophils (%) (Auto) 0.3 Neutrophils # (Auto) 5.5 Lymphocytes # (Auto) 1.5 Monocytes # (Auto) 0.5 Eosinophils # (Auto) 0.4 Basophils # (Auto) 0.0 CBC Comment Sodium Level 139 Potassium Level 3.3 L Chloride Level 100 Carbon Dioxide Level 30.3 Anion Gap 9 Blood Urea Nitrogen 36 H Creatinine 1.52 H Estimated GFR/1.73 m2 32 BUN/Creatinine Ratio 23.7 H Glucose Level 159 H Calcium Level 8.9 Total Bilirubin 0.3 Aspartate Amino Transf (AST/SGOT) 17 Alanine Aminotransferase (ALT/SGPT) 23 Alkaline Phosphatase 68 Troponin I High Sensitivity 15 Troponin I High Sens Percent Delta 16 Troponin I Hi Sens Absolute Change -3 Pro-B-Type Natriuretic Peptide 5810 H Total Protein 7.0 Albumin 3.2 L Globulin 3.8 Albumin/Globulin Ratio 0.8 L Chemistry Comments EKG/XRAY/CT/US/VASC/MRI EKG : Additional Comment I personally interpreted the EKG and this shows: Sinus rhythm, rate 72, QTC 421, T-wave inversion and depression in the inferior leads Chest X-Ray : Additional Comments I personally interpreted the x-ray, and it shows: Pulmonary edema and an enlarged heart, no pneumothorax or focal consolidation Consults/PCP Consults/PCP : Additional Comment Consult: I spoke to the internal medicine service, for admission in the hospital Medical Decision Making Additional information obtaine: old records Findings Reviewed ER note from 2 days ago, the patient was seen for shoulder pain and diagnosed with a urinary tract infection General Diff Dx:Considerations: Unlikely: Contusion Knee Diff Dx:Considerations: Unlikely: Abrasion Ankle Diff Dx:Considerations: Unlikely: Abrasion Foot Diff Dx:Considerations: Unlikely: Abrasion Toe Diff Dx:Considerations: Unlikely: Abrasion Additional Comment Differential includes CHF exacerbation, volume overload, INÉS, dehydration, medication reaction, electrolyte derangement, ACS Assessment The patient presents with leg pain and swelling and associated symptoms. Per her history and exam this appears consistent with volume overload and possible CHF exacerbation. Labs show an acute kidney injury and mild hypokalemia. BNP is not actually elevated compared to previous. In her generalized weakness, lab abnormalities, and significant weight gain, she will be given IV Lasix and admitted for further workup and treatment. Departure Impression: Primary Impression: Edema of lower extremity Additional Impression: INÉS (acute kidney injury) Referrals: NO PRIMARY CARE PROVIDER (PCP) Signature Scribe Signature: na Attestation: EMMANUEL Bland MD Oct 09, 2025 22:00
[2025-10-09 23:12] LABS: MEAN PLATELET VOLUME 8.9 FL (7.4-10.4); RED CELL DISTRIBUTION WIDTH 14.3 % (11.5-14.5)
[2025-10-09 23:17] LABS: CREATININE 1.52 MG/DL (0.40-0.90); TOTAL CARBON DIOXIDE 30.3 MMOL/L (24-32); eCRCL 20 ML/MIN; eGFR 32 ML/MIN
[2025-10-09 23:26] LABS: PRO BRAIN NATRIURETIC PEPTIDE 5810 PG/ML (0-450)
[2025-10-10] VITALS (8 sets, daily range): BP systolic 106–146; BP diastolic 41–77; PULSE 76–85; RESP 14–28; TEMP 97.3–99.1; O2SAT 78–95
--- NOTE | 2025-10-10 00:11 | ELECTROCARDIOGRAPH REPORT ---
[facility] Test Date: 2025-10-10 Test Time: 00:09:11 Pat Name: HA MONROY Department: [facility] Patient ID: [id number] Room: [place] [address] Gender: F Reflesher: : 1935 Requested By: EMMANUEL ALDRICH Order Number: [id number] Reading MD: Dr. TRISH Santos Measurements Intervals [place] Rate: 72 P: 49 VT: 196 QRS: 114 QRSD: 104 T: -8 QT: 384 QTc: 421 Interpretive Statements Sinus rhythm Probable right ventricular hypertrophy Borderline T abnormalities, inferior leads Baseline wander in lead(s) V6 Electronically Signed On 10-11-2025 15:17:[address] TRISH Santos Please click the below link to view image of tracing.
--- NOTE | 2025-10-10 00:19 | RADIOLOGY REPORT ---
CHEST RADIOGRAPH Indication: sob, chest pain, leg swelling Technique: 1 view Comparison: DI CHEST,SINGLE VIEW on DOS: 10/07/25, DI CHEST,SINGLE VIEW on DOS: 10/03/25, DI CHEST,SINGLE VIEW on DOS: 06/17/25 FINDINGS: Lines and Tubes: Unchanged implanted cardiac devices. Lungs/Pleura: Unchanged. Cardiomediastinum: Unchanged. Other: Unchanged osseous structures. IMPRESSION: No significant change from 3 days prior. Heart failure pattern including interstitial edema. Mild left basilar airspace disease likely representing atelectasis. 2 implanted cardiac devices.
[2025-10-10] MEDS: HYDROcodone/acetaminophen 5mg/325mg tablet PO ONE (00:24)
[2025-10-10] MEDS: furosemide 10 MG/1 ML 10ml inj IV ONE (00:25)
[2025-10-10] MEDS ORDERED: potassium Cl 40MEQ/1/2NS 520ml 520 ML IV PRN (02:05)
[2025-10-10] MEDS ORDERED: magnesium sulf-water 2g/50mL 50 ML IV PRN (02:05)
[2025-10-10] MEDS ORDERED: magnesium Cl slow-release 64mg tablet PO PRN (02:05)
[2025-10-10] MEDS ORDERED: magnesium sulf-water 4G/100mL 100 ML IV PRN (02:05)
[2025-10-10] MEDS ORDERED: ondansetron 4mg rapidly disintigrating tab PO PRN (02:05)
[2025-10-10] MEDS ORDERED: mag hydrox/Alum hydrox/simeth 30ml oral suspension PO PRN (02:05)
[2025-10-10] MEDS ORDERED: magnesium hydroxide 30ml (MOM) UD suspension PO PRN (02:05)
[2025-10-10] MEDS ORDERED: potassium Cl 20 mEq SR tablet PO PRN (02:05)
[2025-10-10] MEDS ORDERED: ondansetron/PF 4mg/2ml inj IV PRN (02:05)
--- NOTE | 2025-10-10 02:18 | HISTORY AND PHYSICAL-Residence ---
History & Physical Providers to CC Resident Creating Document: ROYCE AMEZQUITA, RES ~ History of Present Illness Primary Medical Doctor: Trey OLIVER Reason for Admit\Complaint: Hypoxia History of Present Illness Per ED- 89-year-old female history of CHF presenting with leg swelling She tells me that she was admitted not too long ago with volume overload, and did require IV Lasix. She was then discharged home without any medication changes. She was then seen here a couple of days ago and diagnosed with a urinary tract infection and discharged with antibiotics. She returns today with increased leg swelling and weight gain. She tells me she gained about 8 lb of weight in her legs are much more swollen and painful. She also reports having increased cough and shortness of breath. She is on 2 L nasal cannula oxygen at baseline. She has been taking her Lasix daily as prescribed, no recent changes. She also reports having some intermittent chest discomfort. No fevers or chills. Family reports she is generally weak and was having trouble getting around today Allergies: Coded Allergies: No Known Allergies (Unverified , 10/09/25) Home Medications Home Medications Active Keflex* (Cephalexin HCl) 500 Mg Capsule 1 Cap PO BID Robitussin Ipwgp-Erbsr-Askb Dm (Guaifenesin/Dextromethorphan) 200 Mg-10 Mg Capsule 1 Cap PO Q12H 10 Days Cyclobenzaprine* (Cyclobenzaprine HCl) 10 Mg Tablet 5 Mg PO Q8H PRN 5 Days Reported Lyrica (Pregabalin) 50 Mg Capsule 1 Cap PO QAM Cozaar* (Losartan Potassium) 25 Mg Tablet 1 Tab PO QPM Coreg (Carvedilol) 3.125 Mg Tablet 1 Tab PO Q12H [Areds2] 1 Cap PO DAILY [Requip] 4mg Tab 1 PO HS [Potassium] 20mEq Tab 1 PO DAILY [Magnesium] 420mg Tab 1 PO DAILY Hydrocodon-Acetaminophen 5-325 (Hydrocodone Bit/Acetaminophen) 5 Mg-325 Mg Tablet 1 Tab PO BID PRN Lantus* (Insulin Glargine) 100 Unit/1 Ml Vial 0 SUBCUT HS PRN Levothyroxine Sodium 137 Mcg Tablet 1 Tab PO DAILY Jardiance (Empagliflozin) 10 Mg Tablet 1 Tab PO DAILY Lasix (Furosemide) 20 Mg Tablet 1 Tab PO DAILY TAKE AT NOON Lasix (Furosemide) 20 Mg Tablet 2 Tab PO QAM Past Medical History Past Medical History CHF Chronic intractable neuropathic pain Pneumonia Severe degenerative arthritis of the spine Hypothyroidism Diabetes mellitus type 2 Past Surgical History Surgical History Comment Bilateral knee replacements in 2017 and 2019 Left hip replacement Thumb toe surgery Family History Family History: (COPD) Chronic obstructive lung disease FATHER, , Age: 79, Cause: CHF exacerbation FH: HTN (hypertension) MOTHER, , Age: 92, Cause: Ovarian cancer Past Social History Social History Comment Patient lives with her daughter Her PCP-, Library Clerk- Quit smoking , Non- alcohol user, denies any drug or marijuana use Able to ambulate with the help of walker Lives In: Home ROS Constitutional: Reports: no symptoms reported; Denies: fever Eyes: Reports: no symptoms reported ENT: Reports: no symptoms reported Respiratory: Reports: cough, shortness of breath, SOB with exertion Cardiovascular: Reports: no symptoms reported Gastrointestinal: Reports: abdomen distended; Denies: abdominal pain Genitourinary: Reports: decreased urine output Female Genitalia: Reports: pelvic pain Musculoskeletal: Reports: other (Bilateral lower extremity pain) Integumentary: Reports: no symptoms reported Allergic/Immunologic: Reports: no symptoms reported Hematologic/Lymphatic: Reports: no symptoms reported Endocrine: Reports: no symptoms reported Psychiatric: Reports: no symptoms reported Exam Vitals: Vital Signs Date Time Temp Pulse Resp B/P (MAP) Pulse Ox O2 Delivery O2 Flow Rate FiO2 10/10/25 01:04 70 18 122/78 (93) 98 10/09/25 21:28 98.1 2.0 General: Awake , alert, and oriented , With poor hearing HEENT: Atraumatic, normocephalic, EOMI, anicteric sclera ; pink conjunctiva Neck: Trachea midline. Supple, full range of motion, no JVD Cardiac: Regular rhythm, regular rate with Holosystolic murmur at lower left sternal border which increases with inspiration Respiratory: Equal breath sounds bilaterally,Tachypnea ,Bilateral bibisilar crackles are heard on auscultation, Chest wall is symmetric and without deformity. Gastrointestinal: Abdomen symmetric, Mildly distended , soft, non-tender, normal bowel sounds x4 quadrant, normoactive, no hepatosplenomegaly Neurological: Mental status exam: alert and consciousness, orientation, memory, speech - Cranial nerve test: Cranial nerves 2-12 intact - Motor system: Normal Nutrition, normal tone, Power 4/5, no involuntary movements - Sensory system: Increase pain sensation in bilateral lower extremities - Reflex testing: Biceps, triceps and knee reflexes 2+ - Cerebellar: Normal Skin: Warm and dry Extremities : +2 Bilateral pitting edema and painful lower extremities, peripheral pulses felt, No deformities Psychiatric:Appropriate mood and affect,No hallucinations or suicidal ideation Diagnostic Data Last Recorded Lab Results: 10/09/25223710/09/252237 Advance Care Planning Advanced Care plannin - 30 Minutes Additional Plan Acute congestive heart failure with preserved ejection fraction - Echo 10/05/25 shows-LVEF is 60-65%, RVSP - 97 mmHg. Pro BNP-5810 Patient has a history of CHF for which she takes furosemide 20mg, Jardiance 10mg, Carvedilol, losartan. Today patient presents with severe leg swelling, vitals are stable Chest X ray shows- Heart failure pattern including interstitial edema. Mild left basilar airspace disease likely representing atelectasis. 2 implanted cardiac devices. in ED patient received 1 dose of IV Lasix 60 Started Lasix 40 mg IV b.i.d., strict input and output Acute hypoxemic respiratory failure 2/2 congestive heart failure exacerbation Patient is currently on 2 L oxygen maintaining saturation of 98 Started IV Lasix 40 mg b.i.d., monitor input and output Acute kidney injury 2/2 Cardiorenal syndrome(vasomotor neuropathy) BUN-36, Cr-1.5, BUN/creatinine-23.7 Patient is currently on diuresis maintaining strict input and output Follow up with urine lytes, renal ultrasound Type 2 diabetes mellitus Patient has a history of type 2 diabetes mellitus, she takes insulin at home Peripheral neuropathy Continue home med pregabalin 50 mg after med rec Chronic back pain Continue home med cyclobenzaprine altered mental Hypothyroidism Continue home med levothyroxine after med rec Code Status: Full by default, as patient is unable to decide so we need to contact her daughter in a.m. DVT prophylaxis: Heparin subQ Analgesia/Sedation: Morphine Line/tube: Peripheral Nutrition: Heart healthy PT: Ordered Prognosis: Guarded Disposition: Patient will be monitored PCU with telemetry, strict monitoring of input and output Royce Amezquita PGY1-Internal Medicine Resident Attending Physician Attestation Evaluation via HIPPA compliant A/V device. I discussed the case with the resident and I agree with the resident's documentation. 89-year-old woman admitted with acute on chronic heart failure with preserved ejection fraction and INÉS. The treatment plan includes: GDMT for HFpEF. Diuresis to tolerance of BP and renal function. Time spent 50 minutes. Date of Service: Oct 10, 2025 Billing Provider: CAROLINE MEDRANO MD, SATISH, RES Oct 10, 2025 02:18 CHEY YEPEZ MD Oct 10, 2025 06:23
[2025-10-10] MEDS ORDERED: glucagon, human recombinant 1mg kit SUBCUT PRN (02:40)
[2025-10-10] MEDS ORDERED: DEXTROSE 15 GM of carb/4 tabs (each vial/BOTTLE has 4 tablets) PO PRN ×2 (02:40)
[2025-10-10] MEDS ORDERED: dextrose 50%-water 50ml dispensing syringe IV PRN ×2 (02:40)
[2025-10-10] MEDS: PERFLUTREN PROTEIN-A MICROSPHR (Optison) 0.22 MG/ML 3ML VIAL IV ONE (03:55)
[2025-10-10] MEDS: INSULIN LISPRO 100 UNIT/ML INSULN.PEN MULTI-DOSE SQ SCH (07:00)
[2025-10-10 07:36] LABS: OSMOLALITY UA 270 MOSM/K (50-1400)
[2025-10-10] MEDS: furosemide 10 MG/1 ML 10ml inj IV SCH (07:36)
[2025-10-10] MEDS: heparin, porcine 5000 units/ml vial SQ SCH (07:38)
[2025-10-10] MEDS: docusate sod 100mg capsule PO SCH (07:43)
[2025-10-10] MEDS: K and/or MAG REPLACEMENT MC SCH (07:46)
[2025-10-10 07:47] LABS: CREATININE,URINE RANDOM 17.0 MG/DL; TOTAL PROTEIN,URINE RANDOM < 6.0 MG/DL
--- NOTE | 2025-10-10 08:10 | RADIOLOGY REPORT ---
INDICATION: Renal failure TECHNIQUE: Multiple real-time sonographic images of the kidneys and bladder were obtained. COMPARISON: None FINDINGS: The right kidney measures 11 cm in length, which is normal in size. There is normal echogenicity of the right kidney. No hydronephrosis. The left kidney measures 11 cm in length, which is normal in size. There is normal echogenicity of the left kidney. No hydronephrosis. No large intraluminal masses are seen in the bladder. Prior to voiding the bladder volume measures volume 906 cc. IMPRESSION: 1. Normal sonographic appearance of the kidneys. No hydronephrosis.
[2025-10-10] MEDS: HYDROcodone/acetaminophen 5mg/325mg tablet PO PRN (09:57)
[2025-10-10] MEDS: CefTRIAXone/D5W-Rocephin 1gm 50 ML IV SCH (09:57)
[2025-10-10 10:09] LABS: UA EOSINOPHILS NO EOS /HPF
[2025-10-10 10:50] LABS: C DIFF SPECIMEN=DIARRHEA? ACCEPTABLE; C DIFFICILE TOXINS A&B NEGATIVE (Neg)
[2025-10-10 10:51] LABS: C DIFF ANTIGEN NEGATIVE (NEGATIVE)
--- NOTE | 2025-10-10 11:55 | VASCULAR REPORT ---
Indication: Arterial insufficiency Technique: Real- time ultrasound images of the bilateral lower extremity with grayscale, color, and spectral wave Doppler. Comparison: None Findings: Biphasic/triphasic waveforms right STATION GATEMAN, SFA, popliteal, posterior tibial, anterior tibial, dorsalis pedis arteries. Biphasic/ triphasic waveforms left STATION GATEMAN, SFA, popliteal, posterior tibial, peroneal, anterior tibial arteries. Bilateral lower extremity soft tissue edema. Peak systolic velocities are as follows (in cm/s): Right: Common femoral artery: 146 Profunda femoris: 78 Proximal superficial femoral: 141 Mid superficial femoral artery: 107 Distal superficial femoral artery: 116 Popliteal artery: 95 Posterior tibial artery: 110 Anterior tibial artery: 72 Dorsalis pedis artery: 51 Left: Common femoral artery: 145 Profunda femoris: 96 Proximal superficial femoral: 133 Mid superficial femoral artery: 124 Distal superficial femoral artery: 120 Popliteal artery: 98 Posterior tibial artery: 120 Anterior tibial artery: 80 Dorsalis pedis artery: 64 Impression: No sonographic evidence for hemodynamically significant stenosis.
--- NOTE | 2025-10-10 12:05 | VASCULAR REPORT ---
EXAM: [facility] LARRY ANKLE/BRACHIAL INDEX CLINICAL HISTORY: Arterial insufficiency Peripheral vascular disease COMPARISON: [facility] ARTERIAL on DOS: 10/10/25 TECHNIQUE: Grayscale, color Doppler, and spectral imaging of bilateral lower extremity arteries was performed FINDINGS: Right LARRY: 1.0 Left LARRY: 1.15 (velocities in cm/sec) Right posterior tibial artery: 130 Right anterior tibial artery: 120 Left posterior tibial artery: 140 Left anterior tibial artery: 150 Normal triphasic waveforms. IMPRESSION: Normal exam Right LARRY: 1.0 Left LARRY: 1.15 1.0-1.4: normal 0.91-0.99 borderline 0.9: abnormal (i.e. PAD) 0.4-0.9: [id number] PAD <0.4: suggestive of severe PAD
[2025-10-10] MEDS: vancomycin inj. 750 MG in normal saline 250ml IV soln 250 ML IV SCH (14:30)
[2025-10-10] MEDS: potassium Cl 20 mEq SR tablet PO PRN (21:11)
[2025-10-10] MEDS: HYDROcodone/acetaminophen 10/325mg tab PO PRN (21:11)
[2025-10-11] VITALS (16 sets, daily range): BP systolic 104–150; BP diastolic 45–74; PULSE 63–81; RESP 16–24; TEMP 97.5–98.7; O2SAT 86–97
[2025-10-11 06:23] LABS: MEAN PLATELET VOLUME 9.1 FL (7.4-10.4); RED CELL DISTRIBUTION WIDTH 14.2 % (11.5-14.5)
[2025-10-11 07:00] LABS: CREATININE 1.14 MG/DL (0.40-0.90); TOTAL CARBON DIOXIDE 31.4 MMOL/L (24-32); eCRCL 27 ML/MIN; eGFR 45 ML/MIN
[2025-10-11] MEDS: levoTHYROXINE 25mcg tablet PO SCH (08:10)
[2025-10-11] MEDS: levoTHYROXINE 112mcg tablet PO SCH (08:10)
[2025-10-11] MEDS: furosemide 10 MG/1 ML 10ml inj IV SCH (08:34)
[2025-10-11 08:40] LABS: LEUKOCYTE ESTERASE ,URINE SMALL (Neg); NITRITES, URINE NEGATIVE (Neg); OCCULT BLOOD,URINE NEGATIVE (Neg)
[2025-10-11 08:45] LABS: UA COLLECTION TYPE STRAIGHT CATH
[2025-10-11 08:48] LABS: SQUAMOUS EPITHELIAL CELL,UR FEW /LPF (FEW)
[2025-10-11 08:49] LABS: YEAST MANY /HPF (NEGATIVE)
[2025-10-11 08:50] LABS: URINE AMPHETAMINE SCREEN NEGATIVE (Neg); URINE BARBITUATE SCREEN NEGATIVE (Neg); URINE BENZODIAZEPINES SCREEN NEGATIVE (Neg); URINE CANNABINOID SCREEN NEGATIVE (Neg); URINE COCAINE SCREEN NEGATIVE (Neg); URINE METHADONE SCREEN NEGATIVE (Neg); URINE OPIATE SCREEN POSITIVE (Neg); URINE PHENCYCLIDINE SCREEN NEGATIVE (Neg)
[2025-10-11] MEDS ORDERED: albuterol 2.5 MG/3 ML nebule NEB PRN (10:50)
[2025-10-11] MEDS: loperamide 2mg capsule PO ONE (11:02)
[2025-10-11] MEDS: loperamide 2mg capsule PO PRN (11:35)
[2025-10-11] MEDS: ipratropium/albuterol 3ml nebule NEB SCH (11:52)
[2025-10-11] MEDS: multivitamins, therapeutics tablet PO SCH (13:15)
--- NOTE | 2025-10-11 17:00 | PROGRESS NOTE- Residence ---
Progress Note - Resident Providers to CC Resident Creating Document: AGUSTO HUDDLESTON RES ~ Antibiotic Timeout Antibiotic Ordered?: Yes Subjective Patient was seen and examined on bedside, she was complaining of pain in leg bilaterally.She said she is breathing ok but she was looking in respiratory distress. Code status was discussed with the patient yesterday and she chosed to be DNR. Objective Vital Signs Date Time Temp Pulse Resp B/P (MAP) Pulse Ox O2 Delivery O2 Flow Rate FiO2 10/11/25 16:27 67 18 Nasal Cannula 4.0 10/11/25 16:12 86 21 10/11/25 15:00 98.0 150/51 (84) Result Diagram: 10/11/2551910/11/25519 General: Awake , alert, and oriented , With poor hearing HEENT: Atraumatic, normocephalic, EOMI, anicteric sclera ; pink conjunctiva Neck: Trachea midline. Supple, full range of motion, no JVD Cardiac: Regular rhythm, regular rate with Holosystolic murmur at lower left sternal border which increases with inspiration Respiratory: Equal breath sounds bilaterally,Bilateral bibisilar crackles are heard on auscultation, Chest wall is symmetric and without deformity. Gastrointestinal: Abdomen symmetric, Mildly distended , soft, non-tender, normal bowel sounds x4 quadrant, normoactive, no hepatosplenomegaly Neurological: Mental status exam: alert and consciousness, orientation, memory, speech - Cranial nerve test: Cranial nerves 2-12 intact - Motor system: Normal Nutrition, normal tone, Power 4/5, no involuntary movements - Sensory system: Dec sensation in lower extremities. - Reflex testing: Biceps, triceps and knee reflexes 2+ - Cerebellar: Normal Skin: Warm and dry Extremities : +2 Bilateral pitting edema and painful lower extremities, peripheral pulses felt, No deformities Psychiatric:Appropriate mood and affect. Advance Care Planning Advanced Care plannin - 30 Minutes Plan Plan Acute hypoxemic respiratory failure Secondary to Acute on Chronic Congestive Heart failure with preserved ejection fraction Echo 10/05/25 shows-LVEF is 60-65%, RVSP - 97 mmHg. Pro BNP 5810 Chest X ray shows- Heart failure pattern including interstitial edema. Mild left basilar airspace disease likely representing atelectasis. 2 implanted cardiac devices. in ED patient received 1 dose of IV Lasix 60 Lasix 40 mg IV b.i.d. On DuoNebs q.4 loretta and on albuterol q2h prn Strict I&O Daily Weight Severe Pulmonary hypertension Cor Pulmonale Patient uses oxygen 2 L at home baseline. RV is severely dilated with moderately reduced function. RVSP is estimated at 97 mmHg. Patient will need outpatient follow up with industrial cafeteria manager. Left lower Leg Cellulitis Left lower leg erythematous WBC count normal Vancomycin day 2 Acute kidney injury likely to Secondary to Renal Tubular Stasis Creatinine Improved to 1.14 from 1.52 Fluids on hold as patient has CHF. Renal U/S shows: Normal sonographic appearance of the kidneys. No hydronephrosis. Type 2 diabetes mellitus A1c 6.9 On low-dose supplemental insulin protocol Peripheral neuropathy Continue home med pregabalin 50 mg Hypothyroidism Continue levothyroxine 137 mcg Follow with TSH Code Status: Discussed code status with the patient she chose to be DNR. DVT prophylaxis: Heparin subQ Analgesia/Sedation: Morphine Line/tube: Peripheral Nutrition: Heart healthy PT: Ordered Prognosis: Guarded. Disposition: Continue monitoring patient. Agusto Huddleston PGY 1 IM Date of Service: Oct 11, 2025 Billing Provider: DICK CASTANON MD Common Visit Codes: 85437-[id number] INP/OBS CARE(HIGH) AGUSTO HUDDLESTON, RES Oct 11, 2025 17:00 DICK CASTANON MD Oct 13, 2025 08:01
[2025-10-11] MEDS: guaiFENesin/DM 10ml UD oral syrup PO SCH (19:54)
[2025-10-12] VITALS (18 sets, daily range): BP systolic 105–138; BP diastolic 58–78; PULSE 60–86; RESP 16–28; TEMP 97.1–98.5; O2SAT 92–97
--- NOTE | 2025-10-12 05:48 | ELECTROCARDIOGRAPH REPORT ---
[facility] Test Date: 2025-10-12 Test Time: 05:45:08 Pat Name: HA MONROY Department: [facility] [place] [facility] Patient ID: [facility]-[id number] Room: [place] [address] B Gender: F Milieu Coordinator: : 1935 Requested By: SHANNAN NORTH Order Number: [id number] Reading MD: Dr. Ana Lilia Glass Measurements Intervals [place] Rate: 74 P: 74 MT: 189 QRS: 110 QRSD: 103 T: -16 QT: 411 QTc: 456 Interpretive Statements Sinus rhythm Right axis deviation Borderline repolarization abnormality Electronically Signed On 10-12-2025 6:35:[address] Ana Lilia Glass Please click the below link to view image of tracing.
[2025-10-12 06:00] LABS: MEAN PLATELET VOLUME 8.9 FL (7.4-10.4); RED CELL DISTRIBUTION WIDTH 14.2 % (11.5-14.5)
[2025-10-12 06:29] LABS: CREATININE 1.06 MG/DL (0.40-0.90); PRO BRAIN NATRIURETIC PEPTIDE 3617 PG/ML (0-450); TOTAL CARBON DIOXIDE 29.7 MMOL/L (24-32); eCRCL 29 ML/MIN; eGFR 49 ML/MIN
[2025-10-12] MEDS: calcium carbonate 500mg chew tablet PO ONE (07:54)
[2025-10-12] MEDS: EMPAGLIFLOZIN 10 MG TABLET PO SCH (10:10)
[2025-10-12] MEDS: carvedilol 6.25mg tablet PO SCH (10:10)
--- NOTE | 2025-10-12 16:59 | PROGRESS NOTE- Residence ---
Progress Note - Resident Providers to CC Resident Creating Document: MICAELA KRUGER, ANAMARIA CC: DICK CASTANON MD ~ Antibiotic Timeout Antibiotic Ordered?: Yes Subjective Patient was seen and examined at bedside. Patient states that she is relatively feels much better. Patient's erythema and swelling of the left lower leg is also greatly improved. Patient continues to require oxygen which is greater on her baseline Objective Vital Signs Date Time Temp Pulse Resp B/P (MAP) Pulse Ox O2 Delivery O2 Flow Rate FiO2 10/12/25 15:43 86 18 Nasal Cannula 4.0 10/12/25 15:37 97 36 10/12/25 15:31 98.5 138/76 (96) Result Diagram: 10/12/2552110/12/25521 General: Alert, awake, oriented, not in acute distress HEENT: PERRLA, no icterus, pallor, lymphadenopathy, carotid bruit Respiratory system: Bilateral vesicular breath sounds heard CVS: S1-S2 heard, bilateral basal Creps and crackles (improving), grade 3/6 HSM heard in the mitral area with radiation to the tricuspid area GI: Soft, nontender, no organomegaly, no guarding/rigidity, bowel sounds present Neuro: No focal neurological deficits present Mental status exam: alert and consciousness, orientation, memory, speech - Cranial nerve test: Cranial nerves 2-12 intact - Motor system: Nutrition, Tone 3+, Power 5/5, no involuntary movements - Sensory system: Intact - Reflex testing: Biceps, triceps and knee reflexes 2+ - Cerebellar: Normal Extremities: Swelling erythema and edema (improving) Skin: Warm and dry Assessment Assessment An 89-year-old female with a PMH of type 2 DM, peripheral neuropathy and hypothyroidism presented to the ED in view of gradual worsening of shortness of breaths and lower extremity swelling with erythema. Patient is admitted for the evaluation management of acute on chronic heart failure with preserved ejection fraction and left lower extremity cellulitis. Plan Plan Acute hypoxemic respiratory failure 2/2 acute exacerbation of HFpEF, EF: 60-65% Severe pulmonary hypertension, cor pulmonale Severe TR Continue IV Lasix 40 mg once daily Repeat pro BNP, downtrending GDM T: Jardiance 10 mg, Coreg 6.25 p.o. b.i.d., Aldactone 12.5 mg once daily Strict I&O Daily Weights Outpatient follow up with Dr. Villarreal in view of pulmonary hypertension Left lower extremity cellulitis Vascular and arterial ultrasound ruled out DVT and arterial insufficiency Initially nasal swab was MRSA positive therefore was on vancomycin-received for two days Switch to Augmentin 500/125 mg b.i.d. Prerenal INÉS probably secondary to renal tubular stasis Creatinine downtrending Continue to monitor BMP Type 2 diabetes mellitus A1c 6.9 On low-dose supplemental insulin protocol Peripheral neuropathy Continue pregabalin 50 mg once daily Hypothyroidism Continue levothyroxine 137 mcg TSH in August 20: 3.14 Code Status: DNR DVT prophylaxis: Heparin subQ Nutrition: Heart healthy Disposition: Patient prefers to go to [facility] for rehab. Probable discharge tomorrow Micaela Kruger MD Internal Medicine, PGY 2 Date of Service: Oct 12, 2025 Billing Provider: DICK CASTANON MD Common Visit Codes: [id number] INP/OBS CARE(HIGH) MICAELA KRUGER, RES Oct 12, 2025 16:59 DICK CASTANON MD Oct 13, 2025 08:01
[2025-10-12] MEDS: amox tr/potassium clavulanate 500mg/125mg TAB PO SCH (17:54)
[2025-10-13] VITALS (17 sets, daily range): BP systolic 104–143; BP diastolic 44–97; PULSE 60–84; RESP 12–21; TEMP 96.9–98.9; O2SAT 91–99
[2025-10-13 06:01] LABS: MEAN PLATELET VOLUME 8.4 FL (7.4-10.4); RED CELL DISTRIBUTION WIDTH 14.0 % (11.5-14.5)
[2025-10-13 06:22] LABS: CREATININE 1.08 MG/DL (0.40-0.90); TOTAL CARBON DIOXIDE 32.1 MMOL/L (24-32); eCRCL 28 ML/MIN; eGFR 48 ML/MIN
[2025-10-13] MEDS ORDERED: VANCOMYCIN LEVEL IV ONE (13:30)
[2025-10-13] MEDS: JUVEN Smoothie Arginine/Glut./Ca2+Bmb (Juven 19.3pkt) 240ml cup PO SCH (14:32)
--- NOTE | 2025-10-13 17:14 | PROGRESS NOTE- Residence ---
Progress Note - Resident Providers to CC Resident Creating Document: MICAELA KRUGER, RES CC: DICK CASTANON MD ~ Antibiotic Timeout Antibiotic Ordered?: Yes Subjective Patient was seen and examined at bedside. Patient does not have acute overnight events or new complaints. Patient was referred to [facility] who did not have beds today but most likely will have a bed tomorrow for her. Objective Vital Signs Date Time Temp Pulse Resp B/P (MAP) Pulse Ox O2 Delivery O2 Flow Rate FiO2 10/13/25 16:39 94 Nasal Cannula* 3 32 10/13/25 15:18 76 16 10/13/25 11:00 97.8 104/44 (64) Result Diagram: 10/13/25 0531 10/13/25 0531 General: Alert, awake, oriented, not in acute distress HEENT: PERRLA, no icterus, pallor, lymphadenopathy, carotid bruit Respiratory system: Bilateral vesicular breath sounds heard, bilateral crackles heard in all lung regions CVS: S1-S2 heard, bilateral basal Creps and crackles (improving), grade 3/6 HSM heard in the mitral area with radiation to the tricuspid area GI: Soft, nontender, no organomegaly, no guarding/rigidity, bowel sounds present Neuro: No focal neurological deficits present Mental status exam: alert and consciousness, orientation, memory, speech - Cranial nerve test: Cranial nerves 2-12 intact - Motor system: Nutrition, Tone 3+, Power 5/5, no involuntary movements - Sensory system: Intact - Reflex testing: Biceps, triceps and knee reflexes 2+ - Cerebellar: Normal Extremities: Swelling erythema and edema (resolved) Skin: Warm and dry Assessment Assessment An 89-year-old female with a PMH of type 2 DM, peripheral neuropathy and hypothyroidism presented to the ED in view of gradual worsening of shortness of breaths and lower extremity swelling with erythema. Patient is admitted for the evaluation management of acute on chronic heart failure with preserved ejection fraction and left lower extremity cellulitis. Plan Plan Acute hypoxemic respiratory failure 2/2 acute exacerbation of HFpEF, EF: 60-65% Severe pulmonary hypertension, cor pulmonale Severe TR Continue IV Lasix 40 mg once daily Repeat pro BNP, downtrending GDM T: Jardiance 10 mg, Coreg 6.25 p.o. b.i.d., Aldactone 12.5 mg once daily Strict I&O Daily Weights Outpatient follow up with Dr. Villarreal in view of pulmonary hypertension Left lower extremity cellulitis Vascular and arterial ultrasound ruled out DVT and arterial insufficiency Initially nasal swab was MRSA positive therefore was initially on vancomycin- received for two days Continue Augmentin 500/125 mg b.i.d. 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 Peripheral neuropathy Continue pregabalin 50 mg once daily Hypothyroidism Continue levothyroxine 137 mcg TSH in August 20: 3.14 Code Status: DNR DVT prophylaxis: Heparin subQ Nutrition: Heart healthy Disposition: Patient prefers to go to [facility] for rehab. Probable discharge tomorrow Micaela Kruger MD Internal Medicine, PGY 2 Date of Service: Oct 13, 2025 Billing Provider: DICK CASTANON MD Common Visit Codes: [id number] INP/OBS CARE(HIGH) MICAELA KRUGER, RES Oct 13, 2025 17:14 DICK CASTANON MD Oct 14, 2025 07:03
[2025-10-13] MEDS ORDERED: ipratropium/albuterol 3ml nebule NEB PRN (17:15)
[2025-10-14 06:00] VITALS: BP 153/74; PULSE 80; RESP 16; TEMP 97.7; O2SAT 93
[2025-10-14 06:18] LABS: MEAN PLATELET VOLUME 8.7 FL (7.4-10.4); RED CELL DISTRIBUTION WIDTH 13.9 % (11.5-14.5)
[2025-10-14 07:00] LABS: CREATININE 1.20 MG/DL (0.40-0.90); TOTAL CARBON DIOXIDE 30.3 MMOL/L (24-32); eCRCL 26 ML/MIN; eGFR 42 ML/MIN
[2025-10-14 08:00] VITALS: RESP 18; O2SAT 93
[2025-10-14 10:00] VITALS: BP 91/43; PULSE 61; RESP 21; TEMP 98.1; O2SAT 95
[2025-10-14 11:36] VITALS: PULSE 63; RESP 16; O2SAT 94
[2025-10-14 11:44] VITALS: PULSE 60; RESP 16
--- NOTE | 2025-10-14 17:21 | DISCHARGE SUMMARY-Residence ---
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 Patient additionally reported increased leg swelling and weight gain. Patient had associated cough and shortness of breaths at the time of admission. On further evaluation patient was found to have acute hypoxemic respiratory failure requiring 4 L of oxygen secondary to acute exacerbation of heart failure with preserved ejection fraction. Patient's Echo findings revealed severe pulmonary hypotension and severe TR. Patient has been referred to Dr. Villarreal for evaluation and management of pulmonary hypertension. Patient additionally had left lower extremity swelling and pain which was indicative of left lower extremity cellulitis. Patient was immediately started on Lasix for diuresis, Jardiance 10 mg, Coreg 6.25 p.o. b.i.d. and Aldactone 12.5 mg for GDM T. patient has started to feel better. In view of left lower extremity cellulitis patient was initially started on vancomycin as the MRSA nasal swab was positive, in view of improvement patient was switched to Augmentin 500/125 mg b.i.d.. Patient received three days of Augmentin and two days of vancomycin in total. The patient's swelling improved with no erythema antibiotics has been discontinued. At the time of admission patient had prerenal INÉS that improved with diuresis. Patient's other medical conditions were managed as per home meds. After PT evaluation patient is transferred to [facility] for rehabilitation. Patient is hemodynamically stable for transfer. Physical examination at the time of discharge: General: Alert, awake, oriented, not in acute distress HEENT: PERRLA, no icterus, pallor, lymphadenopathy, carotid bruit Respiratory system: Bilateral vesicular breath sounds heard, bilateral crackles heard in all lung regions CVS: S1-S2 heard, bilateral basal Creps and crackles (improving), grade 3/6 HSM heard in the mitral area with radiation to the tricuspid area GI: Soft, nontender, no organomegaly, no guarding/rigidity, bowel sounds present Neuro: No focal neurological deficits present Mental status exam: alert and consciousness, orientation, memory, speech - Cranial nerve test: Cranial nerves 2-12 intact - Motor system: Nutrition, Tone 3+, Power 5/5, no involuntary movements - Sensory system: Intact - Reflex testing: Biceps, triceps and knee reflexes 2+ - Cerebellar: Normal Extremities: Swelling erythema and edema (resolved) Skin: Warm and dry. Discharge medications: Pregabalin 50 mg Jardiance 10 mg once daily Lasix 40 mg once daily Levothyroxine 137 mcg Coreg 6.25 p.o. b.i.d. Aldactone 12.5 mg once daily MVT Nystatin powder Albuterol inahler prn Labs at discharge: WBC: 7.8, H/H: 14.7/43.3, platelet count: 202 Sodium: 137, potassium: 3.8, BUN: 16, creatinine: 1.20 Imaging: Vascular ultrasound: Normal LARRY Renal ultrasound: Normal sonographic appearance of the kidneys. No hydronephros is. Arterial ultrasound: No sonographic evidence for hemodynamically significant stenosis. Chest x-ray: No significant change from 3 days prior. Heart failure pattern including interstitial edema. Mild left basilar airspace disease likely representing atelectasis. 2 implanted cardiac devices. CTA chest: No evidence for pulmonary embolism. Cardiomegaly and pulmonary vascular congestion / interstitial pulmonary edema. Atelectasis in the dependent portions of the lungs. Similar-appearing Mildly prominent Mediastinal lymph nodes, may be reactive. Dilated main pulmonary artery, may be seen with pulmonary arterial hypertension Echo: EF: 60-65%, RVSP: 97 mmHg, severely dilated RV, TV with severe regurgitation. Discharge medications and recommendations have been faxed to the facility. *Problems/Diagnosis: (1) Congestive heart disease Status: Acute (2) INÉS (acute kidney injury) Status: Acute Total Time Spent on D/C: > 30 Minutes Date of Service: Oct 14, 2025 Billing Provider: DICK CASTANON MD, SIVA, RES Oct 14, 2025 16:04
== END 2025-10-14 15:42 | DRG 602 ==
LOC: ER 21:15 → ED HOLD 10-10 01:17 → PCU 3S 10-10 04:58 → ORTHO 4S 10-13 23:09
PROVIDERS: ADMIT Internal Medicine; ATTEND Internal Medicine
DX: L03.116 Cellulitis of left lower limb (principal); I50.33 Acute on chronic diastolic (congestive) heart failure; J96.01 Acute respiratory failure with hypoxia; N17.0 Acute kidney failure with tubular necrosis; I11.0 Hypertensive heart disease with heart failure; J44.9 Chronic obstructive pulmonary disease, unspecified; E03.9 Hypothyroidism, unspecified; E11.42 Type 2 diabetes mellitus with diabetic polyneuropathy; Z66 Do not resuscitate; Z96.642 Presence of left artificial hip joint; Z96.653 Presence of artificial knee joint, bilateral; G89.29 Other chronic pain; M54.89 Other dorsalgia; J43.9 Emphysema, unspecified; Z79.899 Other long term (current) drug therapy; Z90.710 Acquired absence of both cervix and uterus; Z90.49 Acquired absence of other specified parts of digestive tract
CPT/HCPCS: 36415; 71045; 76770; 80048; 80053; 80305; 81001; 82570; 82948; 83605; 83735; 83880; 83935; 84133; 84145; 84156; 84300; 84484; 85025; 87040; 87081; 87088; 87207; 87324; 87449; 87804; 87811; 93005; 93922; 93925; 94640; 94760; 97110; 97116; 97162; 97530; 99285; A6213; A6250; A6258; G0378; J0696; J1644; J1815; J1938; J2270; J3373; J7040; J7050